=== PATIENT | male | born 1975 | race Caucasian/White ===

== ENCOUNTER 2023-07-25 18:04 | Inpatient (IN) ==
[2023-07-25 18:41] LABS: Basophils # (auto) 0.09 K/uL (0.00-0.20); Basophils % (auto) 0.7 %; Eosinophils # (auto) 0.36 K/uL (0.00-0.50); Hematocrit (blood only) 49.8 % (42.0-52.0); Hemoglobin 16.4 g/dl (14.0-18.0); Immature Granulocytes # (auto) 0.08 K/uL (0.01-0.20); Immature Granulocytes % (auto) 0.7 %; Lymphocytes # (auto) 3.05 K/uL (1.20-3.40); Lymphocytes % (auto) 25.4 %; Mean Corpuscular Hemoglobin 28.5 pg (25.0-34.0); Mean Corpuscular Hgb Conc 32.9 g/dL (32.0-36.0); Mean Corpuscular Volume 86.6 fL (80.0-100.0); Mean Platelet Volume 9.7 fL (9.4-12.4); Monocytes # (auto) 0.58 K/uL (0.11-0.59); Monocytes % (auto) 4.8 %; Neutrophils # (auto) 7.87 K/uL (1.40-6.50); Neutrophils % (auto) 65.4 %; Platelet Count 290 K/uL (130-400); RDW Coefficient of Variation 14.7 % (11.5-14.5); RDW Standard Deviation 46.2 fL (36.4-46.3); Red Blood Count 5.75 M/uL (4.70-6.10); White Blood Count 12.03 K/ul (4.8-10.8)
[2023-07-25 18:54] LABS: Albumin Globulin Ratio 1.2 (0.9-2); Albumin Level 4.4 gm/dl (3.4-5.0); BUN Creatinine Ratio 11.4 (10-20); Bilirubin,Total 0.8 mg/dl (0.2-1.0); Calcium 9.1 mg/dl (8.6-10.3); Creatinine Clr Calc Pharmacy 184.4 ml/min; Est GFR (African American) 131.2 ml/min; Est GFR (Non-African American) 113.2 ml/min; Globulin 3.7 gm/dl (2.5-4.0); Potassium 3.8 mmol/L (3.5-5.1); Total Protein 8.1 gm/dl (6.0-8.3)
[2023-07-25 18:58] LABS: Appearance Urine Cloudy (Clear); Bacteria Urine Automated None Seen (None Seen); Bilirubin Urine Negative (Negative); Blood Urine 1+ (Negative); Cast Urine Automated 0-2 /lpf (0-2); Color Urine Yellow; Epithelial Cell Urine Auto 0-2 /hpf (0-2); Glucose Urine UA Negative (Negative); Ketones Urine Negative (Negative); Leukocyte Esterase Urine 1+ (Negative); Nitrite Urine Positive (Negative); Protein Urine 3+ (Negative); Specific Gravity Urine 1.016 (1.000-1.030); Urobilinogen Urine Positive (Negative); WBC Urine Automated >50 /hpf (0-5)
[2023-07-25 18:59] LABS: Acetaminophen < 3 ug/ml (10-30); Salicylate < 3.0 mg/dl (3.0-30)
[2023-07-25 19:00] LABS: Amphetamines+Metham, Urine Neg (Neg); Barbiturates, Urine Neg (Neg); Benzodiazepine, Urine Neg (Neg); Cocaine, Urine Neg (Neg); MDMA (Ecstacy), Urine Neg (Neg); Marijuana, Urine Neg (Neg); Methadone, Urine Neg (Neg); Opiate, Urine Neg (Neg); Phencyclidine, Urine Neg (Neg)
[2023-07-25 19:10] LABS: Thyroid Stimulating Hormone 2.31 uIu/ml (0.300-4.500)
--- NOTE | 2023-07-25 19:11 | Emergency Department Note ---
Impression & Plan Suicide ideation, UTI (urinary tract infection) ED Provider Note NAME: HARIKA FARRIS AGE: 47 SEX: M : 1975 ARRIVES VIA: Ambulance INFORMANT: Patient, ED PROVIDER(S): Rubén Beltran MD CHIEF COMPLAINT: Anxiety, SI, chest pain HPI: This is a 47-year-old male with history of depression, anxiety, diabetes presenting for anxiety and SI. Patient states that he got home from work today and had 15+ panic attacks [id number] today. He notes that his heart was racing and he is having some mild chest pain which is typical for him when he has panic attacks. He notes that this is now resolved. He notes that this was so extreme that he was having SI. He had thoughts about shooting himself with a handgun which she did have abscess but was on the table. He has tells to take the gun away due to these thoughts. ROS: See above HPI for pertinent positives & negatives. A total of 10 systems reviewed and were otherwise negative. PHYSICAL EXAMINATION: General: resting comfortably in no acute distress Head: Normocephalic and atraumatic Eyes: Normal inspection, extraocular muscles intact Ear, nose, throat: Normal external exam Neck: Normal range of motion Respiratory: lungs clear to auscultation bilaterally Cardiovascular: Regular rate/rhythm, no murmur GI: soft, nontender, no guarding or rebound Extremities: nontender, moves all extremities Neuro: The patient awake and alert, appropriately conversive, no focal deficits, symmetric faces Skin: Warm, dry, and intact MEDICAL DECISION MAKING: This is a 47-year-old male history of depression, anxiety and diabetes presenting for anxiety/SI. Patient has resolved chest pain at this time this is very typical for his anxiety attack. Low concern for acute ACS but will rule out with EKG, troponin and cardiac workup. Otherwise will do medical screening workup for psychiatric clearance. -ECG independently interpreted by me with sinus, rate of 107, normal axis, normal [place], normal QRS, normal QTc, no ST segment elevations consistent with STEMI criteria -Lab work is reviewed at this time showed no significant abnormalities aside from a leukocytosis of 12 -Patient urinalysis does reveal signs of UTI -Patient troponin is negative x 2 -At this time patient is medically clear will require Keflex for UTI. Will need Keflex 500 mg 4 times daily for 7 days Differential diagnosis: SI, ACS, CHF, UTI ER treatment provided: See below Diagnostics interpreted by me: ECG: See above Cardiac Monitoring: An order was placed for continuous cardiac monitoring. The monitor shows a rate of 90 with sinus As stated above and show below. Imaging studies: See below. Past Med/Surg History Medical History (Updated 07/26/23 @ 00:26 by Rubén Beltran MD) Urinary retention UTI (urinary tract infection), bacterial Kidney stones Degenerative disc disease Attention deficit disorder (ADD) Post traumatic stress disorder Cardiac murmur "Mild" per pt No murmur noted per recent 04/23/22 anesthesia preop evaluation Surgical History History of cystoscopy Family history of reaction to anesthesia MOTHER > NAUSEA [place] teeth removed History of tonsillectomy and adenoidectomy Hx of cholecystectomy History of bilateral carpal tunnel release Family History Grandfather (Paternal) Diabetes Mother Kidney stone Social History Smoking Status: Never smoker Cigarettes Per Day: 1-2 X PER YEAR; Second Hand Exposure: No; Do You Dip or Chew Tobacco: No; Hx Alcohol Use: No Hx Substance Use: No Preferred Language: Sierra Leonean Communication Ability: Effective Visual Impairment: Limited Web Search Evaluator Required: No Beliefs That Will Affect Care: None Current Living Situation: Spouse Feels Safe at Home: Yes Gender Identity: Male Assistive Devices: Glasses Allergies Allergies Allergy/AdvReac Type Severity Reaction Status Date / Time buspirone [From BuSpar] Allergy Intermediate AGGRESSIVE Verified 06/24/23 12:42 AFTER TAKING SEVERAL DAYS metformin Allergy Verified 06/24/23 12:42 Home Meds Home Medications Medication Instructions Recorded Confirmed lorazepam 1 mg tablet (Ativan) 1 mg PO DAILY PRN Anxiety 08/09/20 07/25/23 glipizide 2.5 mg tablet, extended 10 mg PO QAM 04/07/22 07/25/23 release 24 hr omeprazole 20 mg tablet,delayed 20 mg PO QAM 04/07/22 07/25/23 release duloxetine 60 mg capsule,delayed 60 mg PO DAILY 04/14/23 07/25/23 release escitalopram oxalate 10 mg tablet 10 mg PO DAILY 07/25/23 07/25/23 Previous Rx's Medication Instructions Recorded tamsulosin 0.4 mg capsule (Flomax) 0.4 mg PO DAILY #7 caps 06/03/22 semaglutide 0.25 mg or 0.5 mg (2 0.25 mg (0.368 mL) subcut .COMPLEX 06/10/23 mg/3 mL) subcutaneous pen injector #4.8 mL (Ozempic) testosterone (AndroGel) 3 pump topical DAILY #150 grams 07/15/23 Results & Data (ED) Vital Signs Vital Signs - 24 hr 07/25/23 17:53 07/25/23 18:28 07/25/23 21:27 Temperature 36.6 C Temperature Source Oral Pulse Rate 98 H 103 H Pulse Rate [Right Finger] 86 Pulse Rhythm Regular Pulse Strength Normal Respiratory Rate 20 22 Respiratory Effort / Characteristics Non-Labored Spontaneous Non-Labored Respiratory Depth Normal Normal Respiratory Pattern Regular Regular Blood Pressure 154/86 H Blood Pressure [Left Arm] 164/105 H Blood Pressure Mean 108 Blood Pressure Mean [Left Arm] 124 Blood Pressure Position Sitting Blood Pressure Position [Left Arm] Semi-fowlers Pulse Oximetry 98 95 Oxygen Delivery Method Room Air Room Air Sepsis Recent Fever Within 48 Hours No Sepsis New/Unexplained Change in Mental Status No Sepsis Action Taken by Nursing No Action Required Laboratory Data 07/25/23 18:24 07/25/23 18:24 Lab Results 07/25/23 07/25/23 07/25/23 Range/Units 18:10 18:24 18:34 WBC 12.03 H (4.8-10.8) K/ul RBC 5.75 (4.70-6.10) M/uL Hgb 16.4 (14.0-18.0) g/dl Hct 49.8 (42.0-52.0) % MCV 86.6 (80.0-100.0) fL MCH 28.5 (25.0-34.0) pg MCHC 32.9 (32.0-36.0) g/dL RDW Std Deviation 46.2 (36.4-46.3) fL RDW Coeff of Tien 14.7 H (11.5-14.5) % Plt Count 290 (130-400) K/uL MPV 9.7 (9.4-12.4) fL Immature Gran % (Auto) 0.7 % Neut % (Auto) 65.4 % Lymph % (Auto) 25.4 % [place] % (Auto) 4.8 % Eos % (Auto) 3.0 % Baso % (Auto) 0.7 % Neut # (Auto) 7.87 H (1.40-6.50) K/uL Lymph # (Auto) 3.05 (1.20-3.40) K/uL [place] # (Auto) 0.58 (0.11-0.59) K/uL Eos # (Auto) 0.36 (0.00-0.50) K/uL Baso # (Auto) 0.09 (0.00-0.20) K/uL Immature Gran # (Auto) 0.08 (0.01-0.20) K/uL Sodium 137 (136-145) mmol/L Potassium 3.8 (3.5-5.1) mmol/L Chloride 103 (98-107) mmol/L Carbon Dioxide 26 (21-32) mmol/L Anion Gap 8 (3-11) BUN 8 (6-23) mg/dl Creatinine 0.70 (0.6-1.4) mg/dl Est Cr Clr Drug Dosing 184.4 ml/min Est GFR ( Amer) 131.2 ml/min Est GFR (Non-Af Amer) 113.2 ml/min BUN/Creatinine Ratio 11.4 (10-20) Glucose 118 H (70-99(Fasting)) mg/dl Calcium 9.1 (8.6-10.3) mg/dl Total Bilirubin 0.8 (0.2-1.0) mg/dl AST 42 H (13-39) U/L ALT 41 (7-52) U/L Alkaline Phosphatase 90 (34-104) U/L Troponin I High Sens 5.8 (0-20) pg/ml Total Protein 8.1 (6.0-8.3) gm/dl Albumin 4.4 (3.4-5.0) gm/dl Globulin 3.7 (2.5-4.0) gm/dl Albumin/Globulin Ratio 1.2 (0.9-2) TSH 2.310 (0.300-4.500) uIu/ml Urine Color Yellow Urine Appearance Cloudy A (Clear) Urine pH 7.0 (4.5-7.5) Ur Specific [place] 1.016 (1.000-1.030) Urine Protein 3+ H (Negative) Urine Glucose (UA) Negative (Negative) Urine Ketones Negative (Negative) Urine Blood 1+ H (Negative) Urine Nitrite Positive A (Negative) Urine Bilirubin Negative (Negative) Urine Urobilinogen Positive H (Negative) Ur Leukocyte Esterase 1+ H (Negative) Urine WBC (Auto) >50 H (0-5) /hpf Urine RBC (Auto) 6-10 H (0-2) /hpf U Hyaline Cast (Auto) 0-2 (0-2) /lpf U Epithel Cells (Auto) 0-2 (0-2) /hpf Urine Bacteria (Auto) None Seen (None Seen) Salicylates < 3.0 L (3.0-30) mg/dl Urine Opiates Screen Neg (Neg) Ur Methadone, Qual Neg (Neg) Acetaminophen < 3 L (10-30) ug/ml Urine Barbiturates Neg (Neg) Ur Phencyclidine (PCP) Neg (Neg) U Amphetamin/Meth Scrn Neg (Neg) MDMA (Ecstasy) Screen Neg (Neg) U Benzodiazepines Scrn Neg (Neg) Ur Cocaine Metabolite Neg (Neg) U Marijuana (THC) Screen Neg (Neg) Ethyl Alcohol mg/dL < 10.0 (<10.0) mg/dl SARS-CoV-2, RNA, NAAT (NEGATIVE) 07/25/23 07/25/23 Range/Units 18:40 20:30 WBC (4.8-10.8) K/ul RBC (4.70-6.10) M/uL Hgb (14.0-18.0) g/dl Hct (42.0-52.0) % MCV (80.0-100.0) fL MCH (25.0-34.0) pg MCHC (32.0-36.0) g/dL RDW Std Deviation (36.4-46.3) fL RDW Coeff of Tien (11.5-14.5) % Plt Count (130-400) K/uL MPV (9.4-12.4) fL Immature Gran % (Auto) % Neut % (Auto) % Lymph % (Auto) % [place] % (Auto) % Eos % (Auto) % Baso % (Auto) % Neut # (Auto) (1.40-6.50) K/uL Lymph # (Auto) (1.20-3.40) K/uL [place] # (Auto) (0.11-0.59) K/uL Eos # (Auto) (0.00-0.50) K/uL Baso # (Auto) (0.00-0.20) K/uL Immature Gran # (Auto) (0.01-0.20) K/uL Sodium (136-145) mmol/L Potassium (3.5-5.1) mmol/L Chloride (98-107) mmol/L Carbon Dioxide (21-32) mmol/L Anion Gap (3-11) BUN (6-23) mg/dl Creatinine (0.6-1.4) mg/dl Est Cr Clr Drug Dosing ml/min Est GFR ( Amer) ml/min Est GFR (Non-Af Amer) ml/min BUN/Creatinine Ratio (10-20) Glucose (70-99(Fasting)) mg/dl Calcium (8.6-10.3) mg/dl Total Bilirubin (0.2-1.0) mg/dl AST (13-39) U/L ALT (7-52) U/L Alkaline Phosphatase (34-104) U/L Troponin I High Sens 6.1 (0-20) pg/ml Total Protein (6.0-8.3) gm/dl Albumin (3.4-5.0) gm/dl Globulin (2.5-4.0) gm/dl Albumin/Globulin Ratio (0.9-2) TSH (0.300-4.500) uIu/ml Urine Color Urine Appearance (Clear) Urine pH (4.5-7.5) Ur Specific [place] (1.000-1.030) Urine Protein (Negative) Urine Glucose (UA) (Negative) Urine Ketones (Negative) Urine Blood (Negative) Urine Nitrite (Negative) Urine Bilirubin (Negative) Urine Urobilinogen (Negative) Ur Leukocyte Esterase (Negative) Urine WBC (Auto) (0-5) /hpf Urine RBC (Auto) (0-2) /hpf U Hyaline Cast (Auto) (0-2) /lpf U Epithel Cells (Auto) (0-2) /hpf Urine Bacteria (Auto) (None Seen) Salicylates (3.0-30) mg/dl Urine Opiates Screen (Neg) Ur Methadone, Qual (Neg) Acetaminophen (10-30) ug/ml Urine Barbiturates (Neg) Ur Phencyclidine (PCP) (Neg) U Amphetamin/Meth Scrn (Neg) MDMA (Ecstasy) Screen (Neg) U Benzodiazepines Scrn (Neg) Ur Cocaine Metabolite (Neg) U Marijuana (THC) Screen (Neg) Ethyl Alcohol mg/dL (<10.0) mg/dl SARS-CoV-2, RNA, NAAT NEGATIVE (NEGATIVE) Administered Medications Discontinued Medications Cephalexin HCl (Cephalexin 500 Mg Cap) 500 mg PO NOW STA; Protocol Stop: 07/25/23 19:13 Last Admin: 07/25/23 19:28 Dose: 500 mg Documented By: Discharge Plan Visit Data Chief Complaint: Mental Health Evaluation ED Provider: Rubén Beltran Discharge Problem: Suicide ideation, UTI (urinary tract infection) Patient Disposition: Admitted As Inpatient Discharge Instructions Interventions: ED Discharge Assessment Last Done: 07/25/23 22:19
[2023-07-25] MEDS: cephALEXin 500 MG CAP PO STA (19:28)
[2023-07-25 19:29] LABS: Troponin I High Sensitivity 5.8 pg/ml (0-20)
[2023-07-25] MEDS ORDERED: SODIUM CHLORIDE 0.65% NA SOLN 45 ML (OCEAN) PRN (23:38)
[2023-07-25] MEDS ORDERED: BISMUTH SUBSALICYLATE LIQD 236 ML PO PRN (23:38)
[2023-07-25] MEDS ORDERED: MAGNESIUM HYDROXIDE SUSP 30 ML UDC PO PRN (23:38)
[2023-07-26] MEDS ORDERED: PHARMACY GLYCEMIC MGMT CONSULT PRN (01:07)
[2023-07-26] MEDS: ACETAMINOPHEN 325 MG TAB PO PRN (04:02)
[2023-07-26] MEDS: glipiZIDE 5 MG TAB PO SCH (08:00)
[2023-07-26] MEDS ORDERED: cephALEXin 500 MG CAP PO SCH (09:00)
[2023-07-26] MEDS: OMEPRAZOLE 20 MG PO SCH (09:18)
[2023-07-26] MEDS: cephALEXin 500 MG CAP PO SCH (09:18)
[2023-07-26] MEDS: hydrOXYzine HCl 25 MG TAB PO PRN ×2 (13:01→20:25)
[2023-07-26] MEDS: DULoxetine HCL 30 MG CAP PO SCH (14:15)
--- NOTE | 2023-07-26 15:04 | History & Physical ---
Date of Service July 26, 2023 Impression / Recommendations Impression 47 y/o white male h/o MDD, MIRNA who presents with suicidal ideation and gesture (pulled gun next to him) in the context of relationship stressors and depressive episode. Medical problems include HTN, T2DM, recurrent UTI, renal stones, DJD, GERD. 07/26/23: Presents a h/o significant for multiple major depressive episodes with anxious distress. Currently condition managed by PCP. Did not restart home Lexapro and will increase Cymbalta to optimize dosing. Pt would benefit from safety planning. Recommended outpatient martial counseling to resolve martial conflicts. Does not meet criteria for PTSD or OCD at this time. (1) Major depressive disorder, recurrent episode with anxious distress: (2) Suicide ideation: (3) UTI (urinary tract infection): (4) Poorly controlled type 2 diabetes mellitus: (5) Class 3 obesity: (6) GERD (gastroesophageal reflux disease): (7) Hypertension: Plan 07/26/23: Increase Cymbalta to 30mg QAM, 60mg HS. 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 Chief Complaint "felt overwhelmed and thought about ending it". History of Present Illness 47 y/o white male h/o MDD, MIRNA who presents with suicidal ideation and gesture (pulled gun next to him) in the context of relationship stressors and depressive episode. Medical problems include HTN, T2DM, recurrent UTI, renal stones, DJD, GERD. Reports struggling with depression lately. He reports has been spending time with a new male friend and he was home alone. Ruminated and felt overwhelmed. He pulled the gun close to him from his nightstand and contemplated using it. He then called his mother who informed his and called EMS for assistance. Family has secured guns at this time. Reports recent depression and anxiety. C/o poor sleep, lower appetite, low energy, inc SI, and feelings of worthlessness. Reports inc in panic symptoms over last 2 weeks with episodes of chest pain, inc HR, loss of control. Reports h/o renal stones and UTI; denies current dysuria. Wants to communicate better with spouse and resolve current issues. Feels there is hope for the future. Denies current SI, HI, AVH. Past Psychiatric History Previous Psych History: Past psychiatrist, now mental health managed by PCP. Treated for depression and anxiety since 1995. Initially on Paxil and effective but d/c due to feeling like a "Zombie". He switched to Celexa and was effective for years. Was started on Cymbalta 60mg for back and nerve pain 1 year ago and rates as effective. PCP recently changed antidepressant to Lexapro 10mg given on-going depresion. Reports multiple depressive episodes from 1994 with symptoms of poor sleep, poor appetite, low energy, SI, feeling of worthlessness, loss of interest. Denies h/o hypomania. Denies hypervigilance symptoms, avoidance or nightmares. Current Psychiatric Diagnosis: PTSD, OCD, MIRNA, MDD Outpatient Services: PCP managing mental health care. Previous Psych Admissions: 5 past psychiatric hospitalizations, 2 in [facility] and 3 in [place], last 2018. Do You Have Access To A Gun?: Yes (family is removing firearms from home) History of Previous Suicide Attempt: Yes (multiple attempts in the past around 2018) Allergies Allergy/AdvReac Type Severity Reaction Status Date / Time buspirone [From BuSpar] Allergy Intermediate AGGRESSIVE Verified 06/24/23 12:42 AFTER TAKING SEVERAL DAYS metformin Allergy Verified 06/24/23 12:42 Home Medications Medication Instructions Recorded Confirmed Type lorazepam 1 mg tablet (Ativan) 1 mg PO DAILY PRN Anxiety 08/09/20 07/25/23 History glipizide 2.5 mg tablet, extended 10 mg PO QAM 04/07/22 07/25/23 History release 24 hr omeprazole 20 mg tablet,delayed 20 mg PO QAM 04/07/22 07/25/23 History release tamsulosin 0.4 mg capsule (Flomax) 0.4 mg PO DAILY #7 caps 06/03/22 07/25/23 Rx duloxetine 60 mg capsule,delayed 60 mg PO DAILY 04/14/23 07/25/23 History release semaglutide 0.25 mg or 0.5 mg (2 0.25 mg (0.368 mL) subcut .COMPLEX 06/10/23 07/25/23 Rx mg/3 mL) subcutaneous pen injector #4.8 mL (Ozempic) testosterone (AndroGel) 3 pump topical DAILY #150 grams 07/15/23 07/25/23 Rx escitalopram oxalate 10 mg tablet 10 mg PO DAILY 07/25/23 07/25/23 History Family History Family History of: Depression and Anxiety Family Mental Health History Comment: maternal side - depression, anxiety. Mother dx with depression on Celexa. paternal uncle - by suicide. Alcohol History Hx of Alcohol Use Over the Past 12 Months: No AUDIT Total Score: 0 Smoking Use Have You Smoked or Used Tobacco Products in the Last 30 Days: No tobacco type: cigars Smoking Status: Never smoker Substance History Hx of Prescription Med Misuse Over the Past 12 Months: No Hx of Over the Counter Med Misuse Over the Past 12 Months: No Hx of Inhalent Misuse Over the Past 12 Months: No Hx of Organic Substance Use Over the Past 12 Months: No Hx of Illegal Substances/Street Drug Use Over Past 12 Months: No Problems as a Result of Past Substance Use: None Identified Personal History Living Arrangements: Home Living Arrangements Comments: mobile home Highest Grade Completed: Some College Marital Status: Number Of Children: 0 Beliefs That Will Affect Care: None Current Legal Problems: No Hx Legal Problems: No Hx Traumatic Life Events: Yes Patient History Medical History Urinary retention UTI (urinary tract infection), bacterial Kidney stones Degenerative disc disease Attention deficit disorder (ADD) Post traumatic stress disorder Cardiac murmur "Mild" per pt No murmur noted per recent 04/23/22 anesthesia preop evaluation Surgical History History of cystoscopy Family history of reaction to anesthesia MOTHER > NAUSEA [place] teeth removed History of tonsillectomy and adenoidectomy Hx of cholecystectomy History of bilateral carpal tunnel release Family History Grandfather (Paternal) Diabetes Mother Kidney stone Social History Smoking Status: Never smoker Cigarettes Per Day: 1-2 X PER YEAR; Second Hand Exposure: No; Do You Dip or Chew Tobacco: No; Hx Alcohol Use: No Hx Substance Use: No Preferred Language: Wolof Communication Ability: Effective Visual Impairment: Limited Director Child Required: No Beliefs That Will Affect Care: None Current Living Situation: Spouse Feels Safe at Home: Yes Gender Identity: Male Assistive Devices: Glasses Physical Exam Mental Examination: Appearance: Disheveled Eye Contact: Maintains Eye Contact Motor Behavior: Unremarkable Speech: Normal Mood: Depressed and Anxious Affect: Appropriate and Constricted Thought Process: Intact, Linear and Logical Thought Content: Intact Hallucinations: None Insight: Fair Judgement: Poor Vital Signs (Past 24 Hours): Last Vital Signs Temp 36.7 C 07/26/23 06:37 Pulse 105 H 07/26/23 06:38 Resp 16 07/26/23 06:37 BP 154/94 H 07/26/23 06:38 Pulse Ox 97 07/25/23 23:07 O2 Del Method Room Air 07/25/23 23:07 Exam Statement: A physical exam was performed in the ER prior to admission to the unit. I accept that physical as correct/medical clearance for the inpatient physical exam. Results & Data (U) Laboratory Results Laboratory Results - last 24 hr 07/25/23 07/25/23 07/25/23 18:10 18:24 18:34 WBC 12.03 H RBC 5.75 Hgb 16.4 Hct 49.8 MCV 86.6 MCH 28.5 MCHC 32.9 RDW Std Deviation 46.2 RDW Coeff of Tien 14.7 H Plt Count 290 MPV 9.7 Immature Gran % (Auto) 0.7 Neut % (Auto) 65.4 Lymph % (Auto) 25.4 [place] % (Auto) 4.8 Eos % (Auto) 3.0 Baso % (Auto) 0.7 Neut # (Auto) 7.87 H Lymph # (Auto) 3.05 [place] # (Auto) 0.58 Eos # (Auto) 0.36 Baso # (Auto) 0.09 Immature Gran # (Auto) 0.08 Sodium 137 Potassium 3.8 Chloride 103 Carbon Dioxide 26 Anion Gap 8 BUN 8 Creatinine 0.70 Est Cr Clr Drug Dosing 184.4 Est GFR ( Amer) 131.2 Est GFR (Non-Af Amer) 113.2 BUN/Creatinine Ratio 11.4 Glucose 118 H POC Glucose Calcium 9.1 Total Bilirubin 0.8 AST 42 H ALT 41 Alkaline Phosphatase 90 Troponin I High Sens 5.8 Total Protein 8.1 Albumin 4.4 Globulin 3.7 Albumin/Globulin Ratio 1.2 TSH 2.310 Urine Color Yellow Urine Appearance Cloudy A Urine pH 7.0 Ur Specific [place] 1.016 Urine Protein 3+ H Urine Glucose (UA) Negative Urine Ketones Negative Urine Blood 1+ H Urine Nitrite Positive A Urine Bilirubin Negative Urine Urobilinogen Positive H Ur Leukocyte Esterase 1+ H Urine WBC (Auto) >50 H Urine RBC (Auto) 6-10 H U Hyaline Cast (Auto) 0-2 U Epithel Cells (Auto) 0-2 Urine Bacteria (Auto) None Seen Salicylates < 3.0 L Urine Opiates Screen Neg Ur Methadone, Qual Neg Acetaminophen < 3 L Urine Barbiturates Neg Ur Phencyclidine (PCP) Neg U Amphetamin/Meth Scrn Neg MDMA (Ecstasy) Screen Neg U Benzodiazepines Scrn Neg Ur Cocaine Metabolite Neg U Marijuana (THC) Screen Neg Ethyl Alcohol mg/dL < 10.0 SARS-CoV-2, RNA, NAAT 07/25/23 07/25/23 07/26/23 18:40 20:30 08:00 WBC RBC Hgb Hct MCV MCH MCHC RDW Std Deviation RDW Coeff of Tien Plt Count MPV Immature Gran % (Auto) Neut % (Auto) Lymph % (Auto) [place] % (Auto) Eos % (Auto) Baso % (Auto) Neut # (Auto) Lymph # (Auto) [place] # (Auto) Eos # (Auto) Baso # (Auto) Immature Gran # (Auto) Sodium Potassium Chloride Carbon Dioxide Anion Gap BUN Creatinine Est Cr Clr Drug Dosing Est GFR ( Amer) Est GFR (Non-Af Amer) BUN/Creatinine Ratio Glucose POC Glucose 127 H Calcium Total Bilirubin AST ALT Alkaline Phosphatase Troponin I High Sens 6.1 Total Protein Albumin Globulin Albumin/Globulin Ratio TSH Urine Color Urine Appearance Urine pH Ur Specific [place] Urine Protein Urine Glucose (UA) Urine Ketones Urine Blood Urine Nitrite Urine Bilirubin Urine Urobilinogen Ur Leukocyte Esterase Urine WBC (Auto) Urine RBC (Auto) U Hyaline Cast (Auto) U Epithel Cells (Auto) Urine Bacteria (Auto) Salicylates Urine Opiates Screen Ur Methadone, Qual Acetaminophen Urine Barbiturates Ur Phencyclidine (PCP) U Amphetamin/Meth Scrn MDMA (Ecstasy) Screen U Benzodiazepines Scrn Ur Cocaine Metabolite U Marijuana (THC) Screen Ethyl Alcohol mg/dL SARS-CoV-2, RNA, NAAT NEGATIVE Current Inpatient Medications Current Inpatient Medications: Current Inpatient Medications Acetaminophen (Acetaminophen 325 Mg Tab) 650 mg PO Q4H PRN PRN Reason: Headache or Minor Fever Stop: 08/24/23 23:37 Last Admin: 07/26/23 04:02 Dose: 650 mg Al Hydrox/Mg Hydrox/Simethicone (Aluminum/Magnesium Susp 30 Ml Udc) 30 ml PO Q4H PRN PRN Reason: GI Upset Stop: 08/24/23 23:37 Bismuth Subsalicylate (Bismuth Subsalicylate Liqd 236 Ml) 15 ml PO PRN PRN PRN Reason: Loose Stool Stop: 08/24/23 23:37 Cephalexin HCl (Cephalexin 500 Mg Cap) 500 mg PO QID HERACLIO; Protocol Stop: 08/01/23 21:01 Last Admin: 07/26/23 12:58 Dose: 500 mg Duloxetine HCl (Duloxetine Hcl 30 Mg Cap) 30 mg PO QAM HERACLIO Stop: 08/25/23 13:44 Last Admin: 07/26/23 14:15 Dose: 30 mg Duloxetine HCl (Duloxetine Hcl 60 Mg Cap) 60 mg PO HS HERACLIO Stop: 08/25/23 21:59 Glipizide (Glipizide 5 Mg Tab) 10 mg PO DAILY@0800 HERACLIO Stop: 08/25/23 07:59 Last Admin: 07/26/23 08:00 Dose: 10 mg Hydroxyzine HCl (Hydroxyzine Hcl 25 Mg Tab) 50 mg PO HSZ PRN PRN Reason: Insomnia Stop: 08/24/23 23:37 Hydroxyzine HCl (Hydroxyzine Hcl 25 Mg Tab) 25 mg PO Q4H PRN PRN Reason: Anxiety Stop: 08/24/23 23:37 Last Admin: 07/26/23 13:01 Dose: 25 mg Lorazepam (Lorazepam 0.5 Mg Tab) 0.5 mg PO BID PRN PRN Reason: Anxiety Stop: 08/25/23 13:41 Magnesium Hydroxide (Magnesium Hydroxide Susp 30 Ml Udc) 30 ml PO DAILY PRN PRN Reason: Constipation Stop: 08/24/23 23:37 Omeprazole (Pom - Omeprazole 20 Mg Capcr) [facility] Stop: 08/25/23 08:59 Last Admin: 07/26/23 09:18 Dose: 20 mg Sodium Chloride (Sodium Chloride 0.65% Na Soln 45 Ml ([place])) 1 - 2 sprays NA PRN PRN PRN Reason: Nasal Dryness/Congestion Stop: 08/24/23 23:37
[2023-07-26] MEDS: DULoxetine HCL 60 MG CAP PO SCH (20:25)
[2023-07-26] MEDS: LORazepam 0.5 MG TAB PO PRN (21:52)
[2023-07-27] MEDS: TAMSULOSIN HCL 0.4 MG CAP PO SCH (10:52)
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
[2023-07-27] MEDS: ARIPiprazole 5 MG TAB PO SCH (12:08)
--- NOTE | 2023-07-27 12:33 | Hospitalist Consultation ---
Date of Consultation July 27, 2023 Assessment & Plan (1) Tachycardia: Repeat EKG on 07/26 revealed sinus tachycardia at 104 bpm; QTc 405 Without significant changes from EKG on 07/24 It is possible tachycardia may be secondary to anxiety/panic attacks in the setting of beta-chapito withdrawal Clinically, patient endorses episodes of diaphoresis, lightheadedness, and chest palpitations, but denies chest pain or pressure in the shoulders or jaw Note: These episodes of diaphoresis have been ongoing for several years TSH on arrival was WNL Troponin on arrival was WNL Repeat CBC, BMP, magnesium, and troponin ordered, pending Spoke to [facility]; continues telemetry is unfortunately not an option at this time Will put in an order for "EKG as needed for chest pain" with goal to capture EKG if sweating/chest palpitations return (2) UTI (urinary tract infection): Continue Keflex Hx of kidney stones While in ascending infection is still in the differential as a cause for new onset tachycardia Urine culture on 07/24 grew pansensitive Klebsiella pneumoniae Follow repeat CBC (3) Hypertension: Patient was previously on metoprolol 50 mg daily, but this was discontinued 2 weeks ago due to increased lethargy Will defer starting beta-chapito/CCB until EKG is captured during episodes of chest palpitations/diaphoresis (4) Suicide ideation: Patient originally presented due to suicidal ideations; he reports he has been having trouble with his Management per primary team Plan Agree with current medical decision making. Patient is amenable to holding off on addition of beta-chapito or CCB, as he is largely asymptomatic from his tachycardia at this time and he does not want it to affect his current psych medications. Will consider adding if patient becomes symptomatic. Thank you for allowing us to participate in the care of this patient, please reach out with any questions or concerns. We will continue to follow. Supervising Physician Co-Signing Physician Notes I personally saw and examined the patient. I independently reviewed the labs, EKG, imaging, problem list, medication list, past medical history and family history. I verified all brantley points and agree with Waldemar Putnam PA-C with the following exceptions and/or additions: See communication note from later in day for subjective, assessment and plan A&Ox3, HS increased rate, regular rhythm, no murmurs, Chest CTAB, Abdo SNT, no CVA tenderness History of Present Illness Reason for Consultation: Hypertension Requesting Physician: Braden Marin MD Attending Physician: Braden Marin MD History of Present Illness Yifan is a pleasant 47-year-old male with PMH of MDD, MIRNA, suicidal ideations, T2DM, GERD, and HTN. Patient was admitted for suicidal ideations on 07/24. Shortly into his hospital stay, he developed tachycardia and episodes of diaphoresis. Patient reports that he has been having "sweaty spells" that lasts around 30 to 45 minutes and usually occur after he gets out of the shower. He notes that he has had increased heat intolerance, as well as chest palpitations and lightheadedness that can occur both with exertion and at rest. These episodes of lightheadedness occur 2-3 times per day, and have been happening regularly over the past 2 months. Patient denies any changes in diet; he r eports that he eats healthy and avoids caffeine. He drinks plenty of water due to his extensive history of kidney stones. To his knowledge he has no history of thyroid issues. Patient had chest pain on arrival, but he attributes it to his anxiety and panic attack at that time. It should be noted that the patient was previously on metoprolol 50 mg daily for his hypertension, but this was discontinued around 2 weeks ago as it led to increased lethargy. Patient is tachycardic at 121 bpm at time of consult; vitals otherwise stable. ROS: Patient endorses diaphoretic episodes, heat intolerance, night sweats, body aches, dizziness/lightheadedness, cough (which patient attributes to allergies) and intermittent chest palpitations. Patient denies fever, chills, chest pain, left shoulder/jaw pain or pressure, pleuritic CP, SOB, abdominal pain, N/V/D, changes in urinary or bowel habits, burning with urination (although patient says he can ever feel when he is having a UTI), flank pain, back pain, or decreased urinary output. Allergies Allergy/AdvReac Type Severity Reaction Status Date / Time buspirone [From BuSpar] Allergy Intermediate AGGRESSIVE Verified 06/24/23 12:42 AFTER TAKING SEVERAL DAYS metformin Allergy Verified 06/24/23 12:42 Home Medications Medication Instructions Recorded Confirmed Type lorazepam 1 mg tablet (Ativan) 1 mg PO DAILY PRN Anxiety 08/09/20 07/25/23 History glipizide 2.5 mg tablet, extended 10 mg PO QAM 04/07/22 07/25/23 History release 24 hr omeprazole 20 mg tablet,delayed 20 mg PO QAM 04/07/22 07/25/23 History release tamsulosin 0.4 mg capsule (Flomax) 0.4 mg PO DAILY #7 caps 06/03/22 07/25/23 Rx duloxetine 60 mg capsule,delayed 60 mg PO DAILY 04/14/23 07/25/23 History release semaglutide 0.25 mg or 0.5 mg (2 0.25 mg (0.368 mL) subcut .COMPLEX 06/10/23 07/25/23 Rx mg/3 mL) subcutaneous pen injector #4.8 mL (Ozempic) testosterone (AndroGel) 3 pump topical DAILY #150 grams 07/15/23 07/25/23 Rx escitalopram oxalate 10 mg tablet 10 mg PO DAILY 07/25/23 07/25/23 History Patient History Medical History Urinary retention UTI (urinary tract infection), bacterial Kidney stones Degenerative disc disease Attention deficit disorder (ADD) Post traumatic stress disorder Cardiac murmur "Mild" per pt No murmur noted per recent 04/23/22 anesthesia preop evaluation Surgical History History of cystoscopy Family history of reaction to anesthesia MOTHER > NAUSEA [place] teeth removed History of tonsillectomy and adenoidectomy Hx of cholecystectomy History of bilateral carpal tunnel release Family History Grandfather (Paternal) Diabetes Mother Kidney stone Social History Smoking Status: Never smoker Cigarettes Per Day: 1-2 X PER YEAR; Second Hand Exposure: No; Do You Dip or Chew Tobacco: No; Hx Alcohol Use: No Hx Substance Use: No Preferred Language: German Communication Ability: Effective Visual Impairment: Limited Tumbling And Rolling Supervisor Required: No Beliefs That Will Affect Care: None Current Living Situation: Spouse Feels Safe at Home: Yes Gender Identity: Male Assistive Devices: Glasses Review of Systems Review of Systems: See HPI above Physical Exam Physical Exam: General: no acute distress; pleasant affect; non-toxic appearing; well- nourished; cooperative; SpO2 98% on RA HEENT: normocephalic, atraumatic; no scleral icterus; PERRLA; vision and hearing grossly intact Neck: supple; no lymphadenopathy; trachea midline Skin: warm, dry without signs of tenting; no cyanosis; no rashes, bruising, lesions, or erythema noted CV: chest wall NTP; RR, tachycardic around 120 bpm; S1/S2 normal; no murmurs/rubs/gallops; pulses intact and symmetric at radial, DP, and PT Lungs: no acute respiratory distress; symmetrical chest wall expansion; clear breath sounds across all lung [place] w/o adventitious sounds; no wheezing ABD: Soft, NTP; BS present; no rebound/guarding; moderate distention secondary t o body habitus; negative CVA tenderness; no signs of rashes, erythema, or bruising on the back abdomen or flanks MSK: no tics or fasciculations; no edema noted in the LEs b/l, nonerythematous Neuro: A&Ox3; normal mood and affect; fluent speech; no focal deficits; sensation intact in the LEs b/l Results & Data Results & Data Vital Signs (Past 12 Hours) Vital Signs Temp Pulse Pulse Resp BP BP Pulse Ox 07/27/23 11:10 121 H 18 137/98 98 07/27/23 06:35 118 H 157/103 H 07/27/23 06:34 36.9 C 114 H 18 155/95 H O2 Del Method 07/27/23 11:10 Room Air 07/27/23 06:35 07/27/23 06:34 Laboratory Results Abnormal lab results 07/27/23 Range/Units 07:24 POC Glucose 133 H (70-99) mg/dl PG Care Time/CCT Total # of Minutes Spent Total Time Spent with Patient: Total time spent is greater than 50% in coordination of care (as documented) at patient's floor/unit and/or counseling patient: [place] [address] IN/OBS CONSULT LVL 4,60M Patient Type New Medical Decision Making Moderate Complexity Diagnoses Tachycardia R00.0 UTI (urinary tract infection) N39.0 Hypertension I10 Suicide ideation R45.851
[2023-07-27 14:43] LABS: Basophils % (auto) 0.8 %; Eosinophils # (auto) 0.41 K/uL (0.00-0.50); Eosinophils % (auto) 3.4 %; Hematocrit (blood only) 50.2 % (42.0-52.0); Hemoglobin 17.1 g/dl (14.0-18.0); Immature Granulocytes # (auto) 0.08 K/uL (0.01-0.20); Immature Granulocytes % (auto) 0.7 %; Lymphocytes # (auto) 3.17 K/uL (1.20-3.40); Lymphocytes % (auto) 26.4 %; Mean Corpuscular Hemoglobin 29.1 pg (25.0-34.0); Mean Corpuscular Hgb Conc 34.1 g/dL (32.0-36.0); Mean Corpuscular Volume 85.4 fL (80.0-100.0); Mean Platelet Volume 9.5 fL (9.4-12.4); Monocytes # (auto) 0.65 K/uL (0.11-0.59); Monocytes % (auto) 5.4 %; Neutrophils % (auto) 63.3 %; Platelet Count 296 K/uL (130-400); RDW Coefficient of Variation 14.6 % (11.5-14.5); RDW Standard Deviation 45.2 fL (36.4-46.3); Red Blood Count 5.88 M/uL (4.70-6.10); White Blood Count 12.01 K/ul (4.8-10.8)
[2023-07-27 15:00] LABS: BUN Creatinine Ratio 10.4 (10-20); Calcium 9.5 mg/dl (8.6-10.3); Creatinine Clr Calc Pharmacy 134.4 ml/min; Est GFR (African American) 109.4 ml/min; Est GFR (Non-African American) 94.4 ml/min; Magnesium 1.9 mg/dl (1.7-2.4); Potassium 3.8 mmol/L (3.5-5.1)
[2023-07-27 15:07] LABS: Troponin I High Sensitivity 5.7 pg/ml (0-20)
[2023-07-27] MEDS: [UNRECOGNIZED DRUG - REMARK] SQ SCH (19:45)
--- NOTE | 2023-07-27 23:58 | Communication Note ---
Date of Service: July 27, 2023 Diaphoretic intermittent episodes, stable for many years this does not appear related to his current tachycardia. security monitor could be considered on an ou tpatient basis but given stability for years and EKG taken during an episode showing sinus tachycardia alone I do not feels this needs further inpatient workup. Consider POC glucose during the episode since he is on glipizide. Doubtful he is hypoglycemic but would be useful to objectively rule this out. Pheochromocytoma workup is a low likelihood given stability but could be considered as an outpatient. He does not appear to have a secondary cause of tachycardia: UTI - infection is appropriately being treated with Keflex and he has no worsening symptoms or fever to suggest it is not being adequately treated. WBC minimally elevated, will add procalcitonin for complete workup No hypoxia/anemia/hypovolemia/CHF/ACS, from history/exam no concern of pulmonary embolism Most likely he has baseline tachycardia even while on metoprolol as can be seen from historic trends. Once the metoprolol was stopped he has had this get worse with ongoing inappropriate sinus tachycardia. We discussed treatment for this: 1) Restart metoprolol - he reports the side effects were too much to go back on this 2) Alternative AV rashard chapito - eg. diltiazem 3) Ivabradine 4) Nothing Given his psychiatric medications are being changed it would be difficult to know which drug to blame if he started having side effects therefore he wishes to hold off treatment for now. Thank you for the consult. We will review the patient tomorrow to follow up on procalcitonin, POC glucose and vital signs.
--- NOTE | 2023-07-28 03:43 | Electrocardiogram Report ---
Test Reason : Blood Pressure : / mmHG Vent. Rate : 107 BPM Atrial Rate : 107 BPM P-R Int : 182 ms QRS Dur : 078 ms QT Int : 300 ms P-R-T Axes : 054 030 103 degrees QTc Int : 400 ms Sinus tachycardia Possible Left atrial enlargement Cannot rule out Anterior infarct , age undetermined T wave abnormality, consider lateral ischemia Abnormal ECG When compared with ECG of 08-APR-2022 10:25, Inverted T waves have replaced nonspecific T wave abnormality in Lateral leads Confirmed by Luis Felipe Fairbanks ([id number]) on 07/28/2023 3:43:23 AM Referred By: REFERRED SELF Confirmed By:Luis Felipe Fairbanks
--- NOTE | 2023-07-28 04:20 | Electrocardiogram Report ---
Test Reason : Blood Pressure : / mmHG Vent. Rate : 104 BPM Atrial Rate : 104 BPM P-R Int : 184 ms QRS Dur : 078 ms QT Int : 308 ms P-R-T Axes : 059 051 081 degrees QTc Int : 405 ms Sinus tachycardia Possible Left atrial enlargement T wave abnormality, consider lateral ischemia Abnormal ECG When compared with ECG of 25-JUL-2023 18:15, No significant change Confirmed by Luis Felipe Fairbanks ([id number]) on 07/28/2023 4:20:32 AM Referred By: REFERRED SELF Confirmed By:Luis Felipe Fairbanks
[2023-07-28 09:30] LABS: Chol HDL Ratio 4.5 (0-5)
[2023-07-28 09:34] LABS: Estimated Average Glucose 163 mg/dl; Hemoglobin A1C 7.3 % (4.5-5.6)
[2023-07-28] MEDS: METOPROLOL SUCC 50MG EXT REL TAB PO STA (09:50)
[2023-07-28] MEDS: cloNIDine HCL 0.1 MG TAB PO ONE (10:00)
--- NOTE | 2023-07-28 10:37 | Psychiatric Progress Note ---
Date of Service July 28, 2023 Impression / Recommendations Impression 47 y/o white male h/o MDD, MIRNA who presents with suicidal ideation and gesture (pulled gun next to him) in the context of relationship stressors and depressive episode. Medical problems include HTN, T2DM, recurrent UTI, renal stones, DJD, GERD. Presents a h/o significant for multiple major depressive episodes with anxious distress. 07/27/23: Patient is tolerating the increased dose of Cymbalta and initiation of Abilify. Has reconciled with his and presents a more positive outlook. (1) Major depressive disorder, recurrent episode with anxious distress: (2) Suicide ideation: (3) UTI (urinary tract infection): (4) Poorly controlled type 2 diabetes mellitus: (5) Class 3 obesity: (6) GERD (gastroesophageal reflux disease): (7) Hypertension: Plan 07/28/23: Continue Cymbalta 30mg QAM, 60mg HS; Abilify 5mg QD. 07/27/23: Continue Cymbalta 30mg QAM, 60mg HS. Restart home Tamsulosin 0.4mg QAM. Start Aripiprazole 5mg daily for SNRI augmentation. Consult hospitalist for BP and UTI recs. 07/26/23: Increase Cymbalta to 30mg QAM, 60mg HS. 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 Medical problems include HTN, T2DM, recurrent UTI, renal stones, DJD, GERD. Chief Complaint "can't sleep on this bed". Review of Systems Sleep Information Total Hours of Sleep: 6 Sleep Comments: Requested PRN Vistaril and Ativan for sleep, was up at 0600 Meal Information Percent Meal Consumed - Breakfast: 100 Percent Meal Consumed - Lunch: 100 Percent Meal Consumed - Dinner: 100 Subjective Subjective Patient was seen & assessed and interval progress reviewed with treatment team nursing and social work Overnight no acute events. Patient reports that his the meeting with his yesterday went well. They were able to communicate their needs And he feels like she understood. Reports poor sleep overnight and complains about the bed; says his sleep is good at home. Has been tolerating the Abilify with no reported side effects. He denies SI or HI and AVH. Physical Exam Mental Examination Appearance: Well Groomed Eye Contact: Maintains Eye Contact Motor Behavior: Unremarkable Speech: Normal Mood: Depressed and Anxious Affect: Appropriate and Constricted Thought Process: Intact, Linear and Logical Thought Content: Intact Hallucinations: None Insight: Fair Judgement: Poor (recent suicidal gesture) Vital Signs (Past 24 Hours) Last Vital Signs Temp 36.7 C 07/28/23 06:45 Pulse 105 H 07/28/23 06:45 Resp 18 07/28/23 06:45 BP 158/105 H 07/28/23 06:45 Pulse Ox 98 07/27/23 11:10 O2 Del Method Room Air 07/27/23 11:10 Results & Data ([facility]) Laboratory Results Laboratory Results - last 24 hr 07/27/23 07/28/23 07/28/23 14:21 06:47 08:34 WBC 12.01 H RBC 5.88 Hgb 17.1 Hct 50.2 MCV 85.4 MCH 29.1 MCHC 34.1 RDW Std Deviation 45.2 RDW Coeff of Tien 14.6 H Plt Count 296 MPV 9.5 Immature Gran % (Auto) 0.7 Neut % (Auto) 63.3 Lymph % (Auto) 26.4 [place] % (Auto) 5.4 Eos % (Auto) 3.4 Baso % (Auto) 0.8 Neut # (Auto) 7.60 H Lymph # (Auto) 3.17 [place] # (Auto) 0.65 H Eos # (Auto) 0.41 Baso # (Auto) 0.10 Immature Gran # (Auto) 0.08 Sodium 137 Potassium 3.8 Chloride 105 Carbon Dioxide 24 Anion Gap 8 BUN 10 Creatinine 0.96 Est Cr Clr Drug Dosing 134.4 Est GFR ( Amer) 109.4 Est GFR (Non-Af Amer) 94.4 BUN/Creatinine Ratio 10.4 Glucose 132 H POC Glucose 140 H Estimat Average Glucose 163 Hemoglobin A1c 7.3 H Calcium 9.5 Magnesium 1.9 Troponin I High Sens 5.7 Triglycerides 165 H Cholesterol 147 LDL Cholesterol, Calc 81 VLDL Cholesterol, Calc 33 H HDL Cholesterol 33 Cholesterol/HDL Ratio 4.5 Procalcitonin 0.10 Current Inpatient Medications Current Inpatient Medications: Current Inpatient Medications Acetaminophen (Acetaminophen 325 Mg Tab) 650 mg PO Q4H PRN PRN Reason: Headache or Minor Fever Stop: 08/24/23 23:37 Last Admin: 07/27/23 14:14 Dose: 650 mg Al Hydrox/Mg Hydrox/Simethicone (Aluminum/Magnesium Susp 30 Ml Udc) 30 ml PO Q4H PRN PRN Reason: GI Upset Stop: 08/24/23 23:37 Aripiprazole (Aripiprazole 5 Mg Tab) 5 mg PO DAILY [facility] Stop: 08/26/23 10:59 Last Admin: 07/28/23 07:51 Dose: 5 mg Bismuth Subsalicylate (Bismuth Subsalicylate Liqd 236 Ml) 15 ml PO PRN PRN PRN Reason: Loose Stool Stop: 08/24/23 23:37 Cephalexin HCl (Cephalexin 500 Mg Cap) 500 mg PO QID [facility]; Protocol Stop: 08/01/23 21:01 Last Admin: 07/28/23 07:51 Dose: 500 mg Clonidine HCl (Clonidine Hcl 0.1 Mg Tab) 0.1 mg PO QAM [facility] Stop: 08/28/23 08:59 Duloxetine HCl (Duloxetine Hcl 30 Mg Cap) 30 mg PO QAM [facility] Stop: 08/25/23 13:44 Last Admin: 07/28/23 07:51 Dose: 30 mg Duloxetine HCl (Duloxetine Hcl 60 Mg Cap) 60 mg PO HS [facility] Stop: 08/25/23 21:59 Last Admin: 07/27/23 20:46 Dose: 60 mg Glipizide (Glipizide 5 Mg Tab) 10 mg PO DAILY@0800 [facility] Stop: 08/25/23 07:59 Last Admin: 07/28/23 07:50 Dose: 10 mg Hydroxyzine HCl (Hydroxyzine Hcl 25 Mg Tab) 50 mg PO HSZ PRN PRN Reason: Insomnia Stop: 08/24/23 23:37 Last Admin: 07/27/23 20:46 Dose: 50 mg Hydroxyzine HCl (Hydroxyzine Hcl 25 Mg Tab) 25 mg PO Q4H PRN PRN Reason: Anxiety Stop: 08/24/23 23:37 Last Admin: 07/26/23 13:01 Dose: 25 mg Lorazepam (Lorazepam 0.5 Mg Tab) 0.5 mg PO BID PRN PRN Reason: Anxiety Stop: 08/25/23 13:41 Last Admin: 07/27/23 21:38 Dose: 0.5 mg Magnesium Hydroxide (Magnesium Hydroxide Susp 30 Ml Udc) 30 ml PO DAILY PRN PRN Reason: Constipation Stop: 08/24/23 23:37 Semaglutide*Non-Form (Patient's Own Med) 1 each SQ Q7D@1999 [facility] Stop: 08/26/23 19:59 Last Admin: 07/27/23 19:45 Dose: 0.25 mg Omeprazole (Pom - Omeprazole 20 Mg Capcr) 20 mg PO QAM [facility] Stop: 08/25/23 08:59 Last Admin: 07/28/23 07:51 Dose: 20 mg Sodium Chloride (Sodium Chloride 0.65% Na Soln 45 Ml (Gays)) 1 - 2 sprays NA PRN PRN PRN Reason: Nasal Dryness/Congestion Stop: 08/24/23 23:37 Tamsulosin HCl (Tamsulosin Hcl 0.4 Mg Cap) 0.4 mg PO DAILY [facility] Stop: 08/26/23 10:14 Last Admin: 07/28/23 07:51 Dose: 0.4 mg Mental Health & Subst Abuse Tx Psychiatrist Name of Psychiatrist: Leoncio [facility] Psychiatrist's Psychiatric Appointment Comment: [address] [facility] [address] Therapist Name of Therapist: Ne Hurd Date of Therapist Appointment: 07/27/23 Time of Therapist Appointment: 1430 Therapy Appointment Comment: Virtual, every 2 weeks Therapist Release of Information: Obtained, Reviewed and Signed Post Discharge Appointments Primary Care Physician Name Of Family Doctor/PCP: Dr. العراقي Primary [facility] Date of Future Appointment with PCP: 08/02/22 Time of Appointment with PCP: 9:00 Provider Appointment Comment: [address] [place] [address] Primary Care Release of Information: Obtained, Reviewed and Signed
--- NOTE | 2023-07-28 16:31 | Hospitalist Progress Note ---
Date of Service July 28, 2023 Assessment & Plan (1) Tachycardia: Plan: Repeat EKG on 07/26 revealed sinus tachycardia at 104 bpm; QTc 405 tachycardia is now not in connection to hypertension, maybe related to anxiety Troponin on arrival was WNL TSH normal at this point yenifer control hypertension, did have good response to clonidine, will continue daiy as pt does not want to use Beta Blockers as previously has issues (2) UTI (urinary tract infection): Plan: Continue Keflex Hx of kidney stones Urine culture on 07/24 grew pansensitive Klebsiella pneumoniae (3) Suicide ideation: Plan: Patient originally presented due to suicidal ideations; he reports he has been having trouble with his Management per [facility] unit Admission and Anticipated Discharge Date Admission Date: July 25, 2023 Results & Data Results & Data Vital Signs (Past 12 Hours) Vital Signs Temp Pulse Resp BP 07/28/23 13:24 114 H 133/86 07/28/23 06:45 105 H 158/105 H 07/28/23 06:45 98.1 F 97 H 18 121/82 PG Care Time/CCT Total # of Minutes Spent Total Time Spent with Patient: Total time spent is greater than 50% in coordination of care (as documented) at patient's floor/unit and/or counseling patient: Coding Level of Care Code 67270 SUB INP/OBS CARE 1/25MIN Diagnoses Tachycardia R00.0 UTI (urinary tract infection) N39.0 Suicide ideation R45.851
--- NOTE | 2023-07-29 07:50 | Hospitalist Progress Note ---
Date of Service July 29, 2023 Assessment & Plan (1) Tachycardia: Plan: Repeat EKG on 07/26 revealed sinus tachycardia at 104 bpm; QTc 405 tachycardia is now not in connection to hypertension, maybe related to anxiety Troponin on arrival was WNL TSH normal clonidine with improvement of hypertension, will not try to have completely normotensive as it may take a few weeks to equilibrate, continue medication at dc if pt agreeable (2) UTI (urinary tract infection): Plan: Continue Keflex complete 7 days last dose in the pm of 07/31 Hx of kidney stones Urine culture on 07/24 grew pansensitive Klebsiella pneumoniae (3) Suicide ideation: Plan: Patient originally presented due to suicidal ideations; he reports he has been having trouble with his Management per [facility] health unit Admission and Anticipated Discharge Date Admission Date: July 25, 2023 Results & Data Results & Data Vital Signs (Past 12 Hours) Vital Signs Temp Pulse Pulse Resp BP Pulse Ox O2 Del Method 07/29/23 06:36 108 H 152/83 H 07/29/23 06:35 98.1 F 86 16 147/82 H 07/28/23 22:00 98.5 F 93 H 16 118/74 96 Room Air PG Care Time/CCT Total # of Minutes Spent Total Time Spent with Patient: Total time spent is greater than 50% in coordination of care (as documented) at patient's floor/unit and/or counseling patient: Coding Diagnoses Tachycardia R00.0 UTI (urinary tract infection) N39.0 Suicide ideation R45.851
[2023-07-29] MEDS: cloNIDine HCL 0.1 MG TAB PO SCH (08:22)
[2023-07-29] MEDS ORDERED: METOPROLOL SUCC 50MG EXT REL TAB PO SCH (09:00)
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
--- NOTE | 2023-07-29 14:35 | Communication Note ---
Date of Service: July 29, 2023 Reviewed patient's vital signs spoke to staff on the inpatient behavioral health unit. Patient's blood pressure is better controlled he does have some tachycardia which she is attributing to anxiety. As blood pressure seems to be controlled without side effects that the patient complained about with beta-chapito would recommend patient go home on clonidine 0.1 mg p.o. daily and follow-up his primary care provider for blood pressure checks At this point I medicine will follow from [place] with vital sign checks of the chart if there is need be for the patient to be physically seen please contact me and I will be glad to see him
[2023-07-29] MEDS: ALUMINUM/MAGNESIUM SUSP 30 ML UDC PO PRN (17:12)
[2023-07-30] MEDS ORDERED: DESTROY THIS MEDICATION ONE (08:48)
[2023-07-30] MEDS ORDERED: cloNIDine HCL 0.1 MG TAB PO SCH (09:00)
[2023-07-30] MEDS: cloNIDine HCL 0.1 MG TAB PO ONE (09:50)
--- NOTE | 2023-07-30 10:00 | Discharge Summary ---
Date of Service July 30, 2023 History of Present Illness 47 y/o white male h/o MDD, MIRNA who presents with suicidal ideation and gesture (pulled gun next to him) in the context of relationship stressors and depressive episode. Medical problems include HTN, T2DM, recurrent UTI, renal stones, DJD, GERD. Reports struggling with depression lately. He reports has been spending time with a new male friend and he was home alone. Ruminated and felt overwhelmed. He pulled the gun close to him from his nightstand and contemplated using it. He then called his mother who informed his and called EMS for assistance. Family has secured guns at this time. Reports recent depression and anxiety. C/o poor sleep, lower appetite, low energy, inc SI, and feelings of worthlessness. Reports inc in panic symptoms over last 2 weeks with episodes of chest pain, inc HR, loss of control. Reports h/o renal stones and UTI; denies current dysuria. Wants to communicate better with spouse and resolve current issues. Feels there is hope for the future. Denies current SI, HI, AVH. Physical Exam Mental Examination Appearance: Well Groomed Eye Contact: Maintains Eye Contact Motor Behavior: Unremarkable Speech: Normal Mood: Euthymic and Calm Affect: Appropriate and Constricted Thought Process: Intact, Linear and Logical Thought Content: Intact Hallucinations: None Insight: Fair Judgement: Fair Vital Signs (Past 24 Hours) Last Vital Signs Temp 36.7 C 07/30/23 08:11 Pulse 86 07/30/23 08:11 Resp 18 07/30/23 08:11 BP 157/103 H 07/30/23 08:11 Pulse Ox 96 07/30/23 08:11 O2 Del Method Room Air 07/29/23 22:00 Principal Diagnosis Major depressive disorder, recurrent episode with anxious distress Psychiatric Data See daily stay summary. In short, safety was maintained and the patient was cooperative with care. Medication changes included increasing home cymbalta to 90mg daily, d/c home lexapro, initiating Abilify 5mg QD, starting Keflex for UTI and they tolerated this well. A family session was and safety plan was completed prior to discharge. Day of Discharge Assessment Today the patient voices readiness for discharge. They note improvement in mood and deny thoughts to harm self or others. Thoughts remain organized and they are improved from admission. There is no evidence of psychosis. They agree to take mediations as prescribed and keep follow-up appointments. They are stable for discharge to outpatient level of care. Transition of Care Transition Of Care Record: was reviewed with the patient Advance Directives Advance Directives Information Provided: Yes Advance Directives: No Mental Health Advance Directive: No Advance Directives on File: No Living Will: No Power of Workday Financials Consultant: No Advance Directives Reason:: Declines as Mental Health Visit. 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) Stable Relationships: Yes Supportive Family: Yes Good Rapport with Provider: Yes Absence of Any Risk Factors Above: No Total Time Total Time Spent: Greater Than 30 Minutes Total Time Includes: Examination of the patient, Discharge Planning, Medication Reconciliation and Communication with other providers Discharge Data Consultations 07/27/23 11:16 Consult Hospitalist Routine Lab Results 07/25/23 07/25/23 07/25/23 18:10 18:24 18:34 WBC 12.03 H RBC 5.75 Hgb 16.4 Hct 49.8 MCV 86.6 MCH 28.5 MCHC 32.9 RDW Std Deviation 46.2 RDW Coeff of Tien 14.7 H Plt Count 290 MPV 9.7 Immature Gran % (Auto) 0.7 Neut % (Auto) 65.4 Lymph % (Auto) 25.4 [place] % (Auto) 4.8 Eos % (Auto) 3.0 Baso % (Auto) 0.7 Neut # (Auto) 7.87 H Lymph # (Auto) 3.05 [place] # (Auto) 0.58 Eos # (Auto) 0.36 Baso # (Auto) 0.09 Immature Gran # (Auto) 0.08 Sodium 137 Potassium 3.8 Chloride 103 Carbon Dioxide 26 Anion Gap 8 BUN 8 Creatinine 0.70 Est Cr Clr Drug Dosing 184.4 Est GFR ( Amer) 131.2 Est GFR (Non-Af Amer) 113.2 BUN/Creatinine Ratio 11.4 Glucose 118 H POC Glucose Estimat Average Glucose Hemoglobin A1c Calcium 9.1 Magnesium Total Bilirubin 0.8 AST 42 H ALT 41 Alkaline Phosphatase 90 Troponin I High Sens 5.8 Total Protein 8.1 Albumin 4.4 Globulin 3.7 Albumin/Globulin Ratio 1.2 Triglycerides Cholesterol LDL Cholesterol, Calc VLDL Cholesterol, Calc HDL Cholesterol Cholesterol/HDL Ratio Procalcitonin TSH 2.310 Urine Color Yellow Urine Appearance Cloudy A Urine pH 7.0 Ur Specific [place] 1.016 Urine Protein 3+ H Urine Glucose (UA) Negative Urine Ketones Negative Urine Blood 1+ H Urine Nitrite Positive A Urine Bilirubin Negative Urine Urobilinogen Positive H Ur Leukocyte Esterase 1+ H Urine WBC (Auto) >50 H Urine RBC (Auto) 6-10 H U Hyaline Cast (Auto) 0-2 U Epithel Cells (Auto) 0-2 Urine Bacteria (Auto) None Seen Salicylates < 3.0 L Urine Opiates Screen Neg Ur Methadone, Qual Neg Acetaminophen < 3 L Urine Barbiturates Neg Ur Phencyclidine (PCP) Neg U Amphetamin/Meth Scrn Neg MDMA (Ecstasy) Screen Neg U Benzodiazepines Scrn Neg Ur Cocaine Metabolite Neg U Marijuana (THC) Screen Neg Ethyl Alcohol mg/dL < 10.0 SARS-CoV-2, RNA, NAAT 07/25/23 07/25/23 07/26/23 18:40 20:30 08:00 WBC RBC Hgb Hct MCV MCH MCHC RDW Std Deviation RDW Coeff of Tien Plt Count MPV Immature Gran % (Auto) Neut % (Auto) Lymph % (Auto) [place] % (Auto) Eos % (Auto) Baso % (Auto) Neut # (Auto) Lymph # (Auto) [place] # (Auto) Eos # (Auto) Baso # (Auto) Immature Gran # (Auto) Sodium Potassium Chloride Carbon Dioxide Anion Gap BUN Creatinine Est Cr Clr Drug Dosing Est GFR ( Amer) Est GFR (Non-Af Amer) BUN/Creatinine Ratio Glucose POC Glucose 127 H Estimat Average Glucose Hemoglobin A1c Calcium Magnesium Total Bilirubin AST ALT Alkaline Phosphatase Troponin I High Sens 6.1 Total Protein Albumin Globulin Albumin/Globulin Ratio Triglycerides Cholesterol LDL Cholesterol, Calc VLDL Cholesterol, Calc HDL Cholesterol Cholesterol/HDL Ratio Procalcitonin TSH Urine Color Urine Appearance Urine pH Ur Specific [place] Urine Protein Urine Glucose (UA) Urine Ketones Urine Blood Urine Nitrite Urine Bilirubin Urine Urobilinogen Ur Leukocyte Esterase Urine WBC (Auto) Urine RBC (Auto) U Hyaline Cast (Auto) U Epithel Cells (Auto) Urine Bacteria (Auto) Salicylates Urine Opiates Screen Ur Methadone, Qual Acetaminophen Urine Barbiturates Ur Phencyclidine (PCP) U Amphetamin/Meth Scrn MDMA (Ecstasy) Screen U Benzodiazepines Scrn Ur Cocaine Metabolite U Marijuana (THC) Screen Ethyl Alcohol mg/dL SARS-CoV-2, RNA, NAAT NEGATIVE 07/27/23 07/27/23 07/28/23 07:24 14:21 06:47 WBC 12.01 H RBC 5.88 Hgb 17.1 Hct 50.2 MCV 85.4 MCH 29.1 MCHC 34.1 RDW Std Deviation 45.2 RDW Coeff of Tien 14.6 H Plt Count 296 MPV 9.5 Immature Gran % (Auto) 0.7 Neut % (Auto) 63.3 Lymph % (Auto) 26.4 [place] % (Auto) 5.4 Eos % (Auto) 3.4 Baso % (Auto) 0.8 Neut # (Auto) 7.60 H Lymph # (Auto) 3.17 [place] # (Auto) 0.65 H Eos # (Auto) 0.41 Baso # (Auto) 0.10 Immature Gran # (Auto) 0.08 Sodium 137 Potassium 3.8 Chloride 105 Carbon Dioxide 24 Anion Gap 8 BUN 10 Creatinine 0.96 Est Cr Clr Drug Dosing 134.4 Est GFR ( Amer) 109.4 Est GFR (Non-Af Amer) 94.4 BUN/Creatinine Ratio 10.4 Glucose 132 H POC Glucose 133 H 140 H Estimat Average Glucose Hemoglobin A1c Calcium 9.5 Magnesium 1.9 Total Bilirubin AST ALT Alkaline Phosphatase Troponin I High Sens 5.7 Total Protein Albumin Globulin Albumin/Globulin Ratio Triglycerides Cholesterol LDL Cholesterol, Calc VLDL Cholesterol, Calc HDL Cholesterol Cholesterol/HDL Ratio Procalcitonin TSH Urine Color Urine Appearance Urine pH Ur Specific [place] Urine Protein Urine Glucose (UA) Urine Ketones Urine Blood Urine Nitrite Urine Bilirubin Urine Urobilinogen Ur Leukocyte Esterase Urine WBC (Auto) Urine RBC (Auto) U Hyaline Cast (Auto) U Epithel Cells (Auto) Urine Bacteria (Auto) Salicylates Urine Opiates Screen Ur Methadone, Qual Acetaminophen Urine Barbiturates Ur Phencyclidine (PCP) U Amphetamin/Meth Scrn MDMA (Ecstasy) Screen U Benzodiazepines Scrn Ur Cocaine Metabolite U Marijuana (THC) Screen Ethyl Alcohol mg/dL SARS-CoV-2, RNA, NAAT 07/28/23 07/29/23 07/30/23 08:34 08:04 07:46 WBC RBC Hgb Hct MCV MCH MCHC RDW Std Deviation RDW Coeff of Tien Plt Count MPV Immature Gran % (Auto) Neut % (Auto) Lymph % (Auto) [place] % (Auto) Eos % (Auto) Baso % (Auto) Neut # (Auto) Lymph # (Auto) [place] # (Auto) Eos # (Auto) Baso # (Auto) Immature Gran # (Auto) Sodium Potassium Chloride Carbon Dioxide Anion Gap BUN Creatinine Est Cr Clr Drug Dosing Est GFR ( Amer) Est GFR (Non-Af Amer) BUN/Creatinine Ratio Glucose POC Glucose 146 H 134 H Estimat Average Glucose 163 Hemoglobin A1c 7.3 H Calcium Magnesium Total Bilirubin AST ALT Alkaline Phosphatase Troponin I High Sens Total Protein Albumin Globulin Albumin/Globulin Ratio Triglycerides 165 H Cholesterol 147 LDL Cholesterol, Calc 81 VLDL Cholesterol, Calc 33 H HDL Cholesterol 33 Cholesterol/HDL Ratio 4.5 Procalcitonin 0.10 TSH Urine Color Urine Appearance Urine pH Ur Specific [place] Urine Protein Urine Glucose (UA) Urine Ketones Urine Blood Urine Nitrite Urine Bilirubin Urine Urobilinogen Ur Leukocyte Esterase Urine WBC (Auto) Urine RBC (Auto) U Hyaline Cast (Auto) U Epithel Cells (Auto) Urine Bacteria (Auto) Salicylates Urine Opiates Screen Ur Methadone, Qual Acetaminophen Urine Barbiturates Ur Phencyclidine (PCP) U Amphetamin/Meth Scrn MDMA (Ecstasy) Screen U Benzodiazepines Scrn Ur Cocaine Metabolite U Marijuana (THC) Screen Ethyl Alcohol mg/dL SARS-CoV-2, RNA, NAAT Hospital Course (1) Major depressive disorder, recurrent episode with anxious distress: (2) UTI (urinary tract infection): (3) Poorly controlled type 2 diabetes mellitus: (4) Class 3 obesity: (5) GERD (gastroesophageal reflux disease): (6) Hypertension: Plan 07/29/23: Continue Cymbalta 30mg QAM, 60mg HS; Abilify 5mg QD. 07/28/23: Continue Cymbalta 30mg QAM, 60mg HS; Abilify 5mg QD. 07/27/23: Continue Cymbalta 30mg QAM, 60mg HS. Restart home Tamsulosin 0.4mg QAM. Start Aripiprazole 5mg daily for SNRI augmentation. Consult hospitalist for BP and UTI recs. 07/26/23: Increase Cymbalta to 30mg QAM, 60mg HS. Mental Health & Subst Abuse Tx Psychiatrist Name of Psychiatrist: [facility] Psychiatrist's Date Of Appointment With Psychiatric Provider: 08/09/23 Time of Appointment with Psychiatrist: 2:15 PM Psychiatric Appointment Comment: [address] [facility] [id number] Psychiatrist Release of Information: Obtained, Reviewed and Signed Therapist Name of Therapist: Ne Hurd Therapist's Phone Number: pt. will contact her directly via e-mail at d/c Date of Therapist Appointment: . Time of Therapist Appointment: . Therapy Appointment Comment: Virtual, every 2 weeks Therapist Release of Information: Obtained, Reviewed and Signed Post Discharge Appointments Primary Care Physician Name Of Family Doctor/PCP: Dr. العراقي [facility] Date of Future Appointment with PCP: 08/02/22 Time of Appointment with PCP: 9:00 Provider Appointment Comment: [address] [facility] [address] [place] [address] Primary Care Release of Information: Obtained, Reviewed and Signed Other #1: Name of Aftercare Appointment: [facility] (couples counseling) Phone Number of Aftercare Appointment: Time of Aftercare Appointment: Please contact regarding couples therapy. Aftercare Appointment Comment: [address], [place] [address] #2: Name of Aftercare Appointment: [facility] (couples counseling) Phone Number of Aftercare Appointment: [phone] Time of Aftercare Appointment: Please contact regarding couples therapy. Aftercare Appointment Comment: [address] [place] [address] Contact Information Discharge Discharge [address]: [address] [place] [id number] Discharge Plan Discharge Items Patient Disposition: Home - Self-Care Reason For Visit: UNSPECIFIED DEPRESSIVE DISORDER Discharge Diagnosis: (1) Major depressive disorder, recurrent episode with anxious distress: (2) UTI (urinary tract infection): (3) Poorly controlled type 2 diabetes mellitus: (4) Class 3 obesity: (5) GERD (gastroesophageal reflux disease): (6) Hypertension: Condition on Discharge: Fair Activity: Resume your previous activity Non-emergency contact: Primary Care Provider, Psychiatrist and Therapist Call non-emergency contact if: you have any medication questions and your symptoms worsen Follow-up/Referrals: Aidan العراقي PA-C [Primary Care Provider] - Diet: Regular Addtl Attending Provider Instructions: -Continue Cymbalta 90mg daily -Continue Abilify 5mg daily -Continue Clonidine 0.1mg PO daily and follow-up with primary care physician regarding blood pressure. May take at bedtime if too sedating. -Finish 3 more days of Cephalexin antibiotics Pending Studies at Discharge: No Stand-Alone Forms: My YesVideo, Smoking Cessation Medications and DC Order Prescriptions: New clonidine HCl 0.1 mg Tablet 0.1 mg PO QAM Qty: 30 0RF cephalexin 500 mg Capsule 500 mg PO QID Qty: 12 0RF aripiprazole [Abilify] 5 mg Tablet 5 mg PO DAILY Qty: 30 1RF duloxetine 60 mg Capsule,Delayed Release(Dr/Ec) 60 mg PO HS Qty: 30 1RF lorazepam 0.5 mg Tablet 0.5 mg PO BID PRN (Reason: anxiety) Qty: 60 0RF duloxetine 30 mg Capsule,Delayed Release(Dr/Ec) 30 mg PO QAM Qty: 30 1RF Continued Ozempic 0.25 mg or 0.5 mg (2 mg/3 mL) pen injector 0.25 mg subcut .COMPLEX Qty: 4.8 2RF Rx Instructions: 0.25 mg subcutaneously once weekly; testosterone [AndroGel] 20.25 mg/1.25 gram (1.62 %) gel in metered-dose pump 3 pump topical DAILY Qty: 150 5RF Rx Instructions: apply pump amount over max area of EACH upper arm and shoulder glipizide 2.5 mg Tablet Extended Release 24hr 10 mg PO QAM omeprazole 20 mg Tablet,Delayed Release (Dr/Ec) 20 mg PO QAM tamsulosin [Flomax] 0.4 mg capsule 0.4 mg PO DAILY Qty: 7 0RF Discontinued lorazepam [Ativan] 1 mg tablet 1 mg PO DAILY PRN (Reason: Anxiety) duloxetine 60 mg capsule,delayed release(DR/EC) 60 mg PO DAILY escitalopram oxalate 10 mg Tablet 10 mg PO DAILY Discharge Orders: Discharge Order (Routine); Ordered 07/30/23 Ordered By: Braden Chaves/Other Patient Handouts: Managing Type 2 Diabetes Admission Data Admit Date/Time: 07/25/23 21:51 Attending Provider: Braden Marin Admit Provider: Braden Marin Primary Care Provider: Aidan العراقي Other Providers: Kaleb Castle Other Interventions: Discharge Summary Assessment (RN) Last Done: 07/30/23 08:11 C[place] [address] D/C day mgmt > 30 min Patient Type Established History Detailed Exam Detailed Medical Decision Making Moderate Complexity Diagnoses Major depressive disorder, recurrent episode with anxious distress F33.9 UTI (urinary tract infection) N39.0 Poorly controlled type 2 diabetes mellitus E11.65 Class 3 obesity E66.01 GERD (gastroesophageal reflux disease) K21.9 Hypertension I10 Time Spent (min) 60
[2023-07-31] MEDS ORDERED: cloNIDine HCL 0.1 MG TAB PO SCH (09:00)
== END 2023-07-30 10:10 | disposition home or self-care (01) | DRG 885 ==
LOC: ED 18:04 → 3S 21:51 → ED 22:19

== ENCOUNTER 2023-08-12 20:05 | Inpatient (IN) ==
--- NOTE | 2023-08-12 20:44 | Emergency Department Note ---
Impression & Plan Depression with suicidal ideation, Urinary tract infection, Abrasion of left wrist ED Provider Note NAME: AHRIKA FARRIS AGE: 47 SEX: M : 1975 ARRIVES VIA: Ambulance INFORMANT: Patient, ED PROVIDER(S): Panda Conroy DO CHIEF COMPLAINT: Mental health evaluation HPI: The patient is a 47-year-old male who does have a mental health history who presented to the emergency department by ambulance because of suicidal ideation. The patient was recently left by his significant other. She left him last evening. They were supposed to get together this evening for a talk and discussed getting back together however instead his significant other sent him a picture of her with another man indicating that she wanted to break up. Because of this the patient had severe suicidal ideation. He did cut his left wrist. He has thoughts of cutting himself and bleeding and . ROS: See above HPI for pertinent positives & negatives. A total of 10 systems reviewed and were otherwise negative. PAST MEDICAL HISTORY: See Below PAST SURGICAL HISTORY: See Below FAMILY HISTORY: See Below SOCIAL HISTORY: See Below HOME MEDICATIONS: See Below ALLERGIES: See Below VITALS: See Below PHYSICAL EXAMINATION: GENERAL: The patient is awake and alert. He is very anxious and diaphoretic. EYES: The conjunctivae are clear. The pupils are round and reactive. EARS, NOSE, MOUTH AND THROAT: The nose is without any evidence of any deformity. NECK: The neck is nontender and supple. RESPIRATORY: Normal respiratory effort is noted there is no evidence of wheezing rhonchi or rales CARDIOVASCULAR: Regular rate and rhythm noted there no murmurs rubs or gallops normal S1 normal S2. GASTROINTESTINAL: The abdomen is soft. Abdomen is nontender. MUSCULOSKELETAL/EXTREMITIES: There is no evidence of gross deformity full range of motion is noted in the hips and shoulders. SKIN: Skin is cool and diaphoretic. There is no significant pedal edema. NEUROLOGIC: Patient is awake alert and oriented x3 strength is symmetric patellar reflexes are 2+ bilaterally PSYCH: The patient makes good eye contact mostly evaluation. His affect is very flat. The patient is admitting to suicidal ideation with a plan to cut himself and . MEDICAL DECISION MAKING: The patient is a 47-year-old male who presented to the emergency department for an evaluation of mental health problems. The patient was experiencing depression with suicidal ideation after recent break-up with his significant other. The patient has a small abrasion on his left wrist which was self- inflicted. He had thoughts of hurting himself further by cutting. The patient also was found to have urinary tract infection. He was treated recently for urinary tract infection. I did review the patient's recent urine culture and he was given a dose of IV Rocephin in the emergency department. He was also treated with IV fluids. On reevaluation he was somewhat improved. I discussed the patient's laboratory results with him. I discussed his condition with the Mental health casework specialist in the emergency department. At this time the patient is medically cleared. He is awaiting further disposition and evaluation for inpatient psychiatric treatment. Triage Nursing notes reviewed. Prior medical records reviewed Vital Signs: reviewed and remarkable for elevated blood pressure. Differential diagnosis: Mood disorder, infection, hypoglycemia, electrolyte abnormalities, cardiac sources, intracerebral event, toxicologic, trauma, neurologic, as well as other pathologies. ER treatment provided: See below Diagnostics interpreted by me: ECG: EKG was obtained in the emergency department. My interpretation is sinus tachycardia at 116 bpm. There is no ectopy. There were T wave inversions in the high lateral leads with nonspecific ST segment abnormalities. This was compared to a tracing from July 27, 2023. No changes were noted. Cardiac Monitoring: An order was placed for continuous cardiac monitoring. The monitor shows a rate of 90 bpm with sinus rhythm. Laboratory studies: As stated above and show below. Imaging studies: See below. Consultation(s): I discussed the patient's condition with the emergency department mental health casework specialist. The patient was signed out to Dr. Werner at change of shift. Please see her note for continuation of care and further disposition. Past Med/Surg History Problem List (Updated 08/12/23 @ 22:45 by Panda Conroy DO) Abrasion of left wrist (Acute) Urinary tract infection (Acute) Depression with suicidal ideation (Acute) Major depressive disorder, recurrent episode with anxious distress Poorly controlled type 2 diabetes mellitus Class 3 obesity GERD (gastroesophageal reflux disease) Hypertension Medical History UTI (urinary tract infection) Suicide ideation Hypogonadotropic hypogonadism in male Urinary retention UTI (urinary tract infection), bacterial Kidney stones Degenerative disc disease Attention deficit disorder (ADD) Post traumatic stress disorder Cardiac murmur "Mild" per pt No murmur noted per recent 04/23/22 anesthesia preop evaluation Surgical History History of cystoscopy Family history of reaction to anesthesia MOTHER > NAUSEA [place] teeth removed History of tonsillectomy and adenoidectomy Hx of cholecystectomy History of bilateral carpal tunnel release Family History Grandfather (Paternal) Diabetes Mother Kidney stone Social History Smoking Status: Current some day smoker Cigarettes Per Day: 1-2 X PER YEAR; Second Hand Exposure: No; Do You Dip or Chew Tobacco: No; Hx Alcohol Use: No Hx Substance Use: No Preferred Language: [place] Communication Ability: Effective Visual Impairment: Limited General Office Associate Required: No Beliefs That Will Affect Care: None Current Living Situation: Spouse Feels Safe at Home: Yes Gender Identity: Male Assistive Devices: Glasses Allergies Allergies Allergy/AdvReac Type Severity Reaction Status Date / Time buspirone [From BuSpar] Allergy Intermediate AGGRESSIVE Verified 06/24/23 12:42 AFTER TAKING SEVERAL DAYS metformin Allergy Unknown Verified 08/12/23 21:32 Home Meds Home Medications Medication Instructions Recorded Confirmed omeprazole 20 mg tablet,delayed 20 mg PO QAM 04/07/22 08/12/23 release aripiprazole 5 mg tablet (Abilify) 5 mg PO QAM 08/12/23 08/12/23 glipizide 10 mg tablet, extended 10 mg PO QAM 08/12/23 08/12/23 release 24 hr lorazepam 1 mg tablet 1 mg PO DAILY PRN Anxiety 08/12/23 08/12/23 nitrofurantoin 100 mg PO BID 08/12/23 08/12/23 monohydrate/macrocrystals 100 mg capsule tamsulosin 0.4 mg capsule (Flomax) 0.4 mg PO QAM 08/12/23 08/12/23 testosterone (AndroGel) 3 pump topical HS 08/12/23 08/12/23 Previous Rx's Medication Instructions Recorded semaglutide 0.25 mg or 0.5 mg (2 0.25 mg (0.368 mL) subcut .COMPLEX 03/21/24 mg/3 mL) subcutaneous pen injector #4.8 mL (Ozempic) clonidine HCl 0.1 mg tablet 0.1 mg PO QAM #30 tabs 07/30/23 duloxetine 30 mg capsule,delayed 30 mg PO QAM #30 caps 07/30/23 release duloxetine 60 mg capsule,delayed 60 mg PO HS #30 caps 07/30/23 release Results & Data (ED) Vital Signs Vital Signs - 24 hr 08/12/23 20:20 08/12/23 20:31 08/12/23 21:49 Temperature 37.4 C Temperature Source Oral Pulse Rate 125 H Pulse Rate [Finger] 98 H Respiratory Rate 18 19 Respiratory Effort / Characteristics Non-Labored Respiratory Depth Normal Respiratory Pattern Regular Blood Pressure 166/119 H Blood Pressure [Right Arm] 154/91 H Blood Pressure Mean 134 Blood Pressure Mean [Right Arm] 112 Blood Pressure Position [Right Arm] Sitting Pulse Oximetry 95 97 Oxygen Delivery Method Room Air Room Air Sepsis Recent Fever Within 48 Hours No Sepsis New/Unexplained Change in Mental Status No Sepsis Action Taken by Nursing No Action Required 08/12/23 23:00 Temperature Temperature Source Pulse Rate Pulse Rate [Finger] 110 H Respiratory Rate 19 Respiratory Effort / Characteristics Non-Labored Respiratory Depth Normal Respiratory Pattern Regular Blood Pressure Blood Pressure [Right Arm] 142/88 H Blood Pressure Mean Blood Pressure Mean [Right Arm] 106 Blood Pressure Position [Right Arm] Lying Pulse Oximetry 95 Oxygen Delivery Method Room Air Sepsis Recent Fever Within 48 Hours Sepsis New/Unexplained Change in Mental Status Sepsis Action Taken by [facility] Medications Current Medication List: was personally reviewed by me Laboratory Data Attestation: I reviewed the patient's lab results. 08/12/23 20:45 08/12/23 20:45 Lab Results 08/12/23 08/12/23 08/12/23 Range/Units 20:20 20:45 21:39 WBC 12.77 H (4.8-10.8) K/ul RBC 5.89 (4.70-6.10) M/uL Hgb 17.2 (14.0-18.0) g/dl Hct 50.5 (42.0-52.0) % MCV 85.7 (80.0-100.0) fL MCH 29.2 (25.0-34.0) pg MCHC 34.1 (32.0-36.0) g/dL RDW Std Deviation 44.5 (36.4-46.3) fL RDW Coeff of Tien 14.3 (11.5-14.5) % Plt Count 296 (130-400) K/uL MPV 9.6 (9.4-12.4) fL Immature Gran % (Auto) 0.5 % Neut % (Auto) 68.9 % Lymph % (Auto) 23.3 % [place] % (Auto) 5.6 % Eos % (Auto) 1.1 % Baso % (Auto) 0.6 % Neut # (Auto) 8.80 H (1.40-6.50) K/uL Lymph # (Auto) 2.98 (1.20-3.40) K/uL [place] # (Auto) 0.71 H (0.11-0.59) K/uL Eos # (Auto) 0.14 (0.00-0.50) K/uL Baso # (Auto) 0.08 (0.00-0.20) K/uL Immature Gran # (Auto) 0.06 (0.01-0.20) K/uL Sodium 137 (136-145) mmol/L Potassium 3.5 (3.5-5.1) mmol/L Chloride 104 (98-107) mmol/L Carbon Dioxide 24 (21-32) mmol/L Anion Gap 9 (3-11) BUN 10 (6-23) mg/dl Creatinine 0.84 (0.6-1.4) mg/dl Est Cr Clr Drug Dosing 158.7 ml/min Est GFR ( Amer) 121.7 ml/min Est GFR (Non-Af Amer) 105.0 ml/min BUN/Creatinine Ratio 11.9 (10-20) Glucose 183 H (70-99(Fasting)) mg/dl Calcium 9.1 (8.6-10.3) mg/dl Total Bilirubin 0.9 (0.2-1.0) mg/dl AST 38 (13-39) U/L ALT 47 (7-52) U/L Alkaline Phosphatase 82 (34-104) U/L Troponin I High Sens 9.6 (0-20) pg/ml Total Protein 8.0 (6.0-8.3) gm/dl Albumin 4.3 (3.4-5.0) gm/dl Globulin 3.7 (2.5-4.0) gm/dl Albumin/Globulin Ratio 1.2 (0.9-2) TSH 1.780 (0.300-4.500) uIu/ml Urine Color Dark Yellow Urine Appearance Clear (Clear) Urine pH 6.5 (4.5-7.5) Ur Specific [place] 1.021 (1.000-1.030) Urine Protein 3+ H (Negative) Urine Glucose (UA) Trace H (Negative) Urine Ketones Trace H (Negative) Urine Blood Trace H (Negative) Urine Nitrite Negative (Negative) Urine Bilirubin Negative (Negative) Urine Urobilinogen Negative (Negative) Ur Leukocyte Esterase 1+ H (Negative) Urine WBC (Auto) >50 H (0-5) /hpf Urine RBC (Auto) 3-5 H (0-2) /hpf U Hyaline Cast (Auto) 0-2 (0-2) /lpf U Epithel Cells (Auto) 0-2 (0-2) /hpf Urine Bacteria (Auto) None Seen (None Seen) Salicylates < 3.0 L (3.0-30) mg/dl Urine Opiates Screen Neg (Neg) Ur Methadone, Qual Neg (Neg) Acetaminophen < 3 L (10-30) ug/ml Urine Barbiturates Neg (Neg) Ur Phencyclidine (PCP) Neg (Neg) U Amphetamin/Meth Scrn Neg (Neg) MDMA (Ecstasy) Screen Neg (Neg) U Benzodiazepines Scrn Neg (Neg) Ur Cocaine Metabolite Neg (Neg) U Marijuana (THC) Screen Neg (Neg) Ethyl Alcohol mg/dL < 10.0 (<10.0) mg/dl SARS-CoV-2, RNA, NAAT NEGATIVE (NEGATIVE) Administered Medications Discontinued Medications Sodium Chloride (Nss) 1,000 mls @ 999 mls/hr IV .Q1H1M ONE Stop: 08/12/23 21:37 Last Infusion: 08/12/23 22:16 Dose: Infused Documented By: Admin: 08/12/23 21:12 Dose: 999 mls/hr Documented By: BRANDT Ceftriaxone Sodium (Rocephin) 2,000 mg in 50 mls @ 100 mls/hr IV NOW STA Stop: 08/12/23 22:28 Last Infusion: 08/12/23 22:54 Dose: Infused Documented By: Admin: 08/12/23 22:21 Dose: 100 mls/hr Documented By: BRANDT Lorazepam (Lorazepam 1 Mg Tab) 1 mg PO NOW STA Stop: 08/12/23 20:38 Last Admin: 08/12/23 21:09 Dose: 1 mg Documented By: BRANDT Discharge Plan Visit Data Chief Complaint: Mental Health Evaluation Stated Complaint: Laceration L Wrist ED Provider: Panda Conroy Discharge Problem: Depression with suicidal ideation, Urinary tract infection, Abrasion of left wrist Patient Disposition: Still a Patient Forms Stand Alone Forms: My [facility] [employer], Suicide Prevention Resources Prescriptions Prescriptions: No Action Ozempic 0.25 mg or 0.5 mg (2 mg/3 mL) pen injector 0.25 mg subcut .COMPLEX Qty: 4.8 2RF Rx Instructions: 0.25 mg subcutaneously once weekly; TUESDAYS omeprazole 20 mg Tablet,Delayed Release (Dr/Ec) 20 mg PO QAM clonidine HCl 0.1 mg Tablet 0.1 mg PO QAM Qty: 30 0RF Rx Instructions: Rx shows up in pharmacy records and pt claims he takes this but no bottle present duloxetine 60 mg Capsule,Delayed Release(Dr/Ec) 60 mg PO HS Qty: 30 1RF duloxetine 30 mg Capsule,Delayed Release(Dr/Ec) 30 mg PO QAM Qty: 30 1RF glipizide 10 mg tablet extended release 24hr 10 mg PO QAM nitrofurantoin monohyd/m-cryst 100 mg capsule 100 mg PO BID Rx Instructions: ordered 08/12/23 take for 7 days lorazepam 1 mg tablet 1 mg PO DAILY MDD 1 tablet PRN (Reason: Anxiety) tamsulosin [Flomax] 0.4 mg capsule 0.4 mg PO QAM aripiprazole [Abilify] 5 mg tablet 5 mg PO QAM testosterone [AndroGel] 20.25 mg/1.25 gram (1.62 %) gel in metered-dose pump 3 pump topical HS Rx Instructions: apply pump amount over max area of EACH upper arm and shoulder Referrals Referrals: Aidan العراقي PA-C [Primary Care Provider] - Discharge Problem: Urinary tract infection Qualifiers: Urinary tract infection type: site unspecified Hematuria presence: without hematuria Qualified Code(s): N39.0 - Urinary tract infection, site not specified Abrasion of left wrist Qualifiers: Encounter type: initial encounter Qualified Code(s): S60.812A - Abrasion of left wrist, initial encounter
[2023-08-12 20:59] LABS: Appearance Urine Clear (Clear); Bacteria Urine Automated None Seen (None Seen); Bilirubin Urine Negative (Negative); Blood Urine Trace (Negative); Cast Urine Automated 0-2 /lpf (0-2); Color Urine Dark Yellow; Epithelial Cell Urine Auto 0-2 /hpf (0-2); Glucose Urine UA Trace (Negative); Ketones Urine Trace (Negative); Leukocyte Esterase Urine 1+ (Negative); Nitrite Urine Negative (Negative); Protein Urine 3+ (Negative); Specific Gravity Urine 1.021 (1.000-1.030); Urobilinogen Urine Negative (Negative); WBC Urine Automated >50 /hpf (0-5); pH Urine 6.5 (4.5-7.5)
[2023-08-12] MEDS: LORazepam 1 MG TAB PO STA (21:09)
[2023-08-12] MEDS: SODIUM CHLORIDE 0.9% 1,000 ML IV ONE (21:12)
[2023-08-12 21:21] LABS: Basophils # (auto) 0.08 K/uL (0.00-0.20); Basophils % (auto) 0.6 %; Eosinophils # (auto) 0.14 K/uL (0.00-0.50); Eosinophils % (auto) 1.1 %; Hematocrit (blood only) 50.5 % (42.0-52.0); Hemoglobin 17.2 g/dl (14.0-18.0); Immature Granulocytes # (auto) 0.06 K/uL (0.01-0.20); Immature Granulocytes % (auto) 0.5 %; Lymphocytes # (auto) 2.98 K/uL (1.20-3.40); Lymphocytes % (auto) 23.3 %; Mean Corpuscular Hemoglobin 29.2 pg (25.0-34.0); Mean Corpuscular Hgb Conc 34.1 g/dL (32.0-36.0); Mean Corpuscular Volume 85.7 fL (80.0-100.0); Mean Platelet Volume 9.6 fL (9.4-12.4); Monocytes # (auto) 0.71 K/uL (0.11-0.59); Monocytes % (auto) 5.6 %; Neutrophils % (auto) 68.9 %; Platelet Count 296 K/uL (130-400); RDW Coefficient of Variation 14.3 % (11.5-14.5); RDW Standard Deviation 44.5 fL (36.4-46.3); Red Blood Count 5.89 M/uL (4.70-6.10); White Blood Count 12.77 K/ul (4.8-10.8)
[2023-08-12 21:39] LABS: Albumin Globulin Ratio 1.2 (0.9-2); Albumin Level 4.3 gm/dl (3.4-5.0); BUN Creatinine Ratio 11.9 (10-20); Bilirubin,Total 0.9 mg/dl (0.2-1.0); Calcium 9.1 mg/dl (8.6-10.3); Creatinine Clr Calc Pharmacy 158.7 ml/min; Est GFR (African American) 121.7 ml/min; Globulin 3.7 gm/dl (2.5-4.0); Potassium 3.5 mmol/L (3.5-5.1)
[2023-08-12 21:46] LABS: Troponin I High Sensitivity 9.6 pg/ml (0-20)
[2023-08-12 21:51] LABS: Amphetamines+Metham, Urine Neg (Neg); Barbiturates, Urine Neg (Neg); Benzodiazepine, Urine Neg (Neg); Cocaine, Urine Neg (Neg); MDMA (Ecstacy), Urine Neg (Neg); Marijuana, Urine Neg (Neg); Methadone, Urine Neg (Neg); Opiate, Urine Neg (Neg); Phencyclidine, Urine Neg (Neg)
[2023-08-12 21:55] LABS: Thyroid Stimulating Hormone 1.78 uIu/ml (0.300-4.500)
[2023-08-12 21:58] LABS: Acetaminophen < 3 ug/ml (10-30); Salicylate < 3.0 mg/dl (3.0-30)
[2023-08-12] MEDS: cefTRIAXone SODIUM 2,000 MG/50 ML BAG IV STA (22:21)
--- NOTE | 2023-08-13 00:57 | Emergency Department Note ---
ED Visit Note Patient signed out to me at change of shift from Dr. Conroy. 201 signed by me at 0041. Patient accepted at [address] .
[2023-08-13] MEDS ORDERED: ALUMINUM/MAGNESIUM SUSP 30 ML UDC PO PRN (01:14)
[2023-08-13] MEDS ORDERED: MAGNESIUM HYDROXIDE SUSP 30 ML UDC PO PRN (01:14)
[2023-08-13] MEDS ORDERED: BISMUTH SUBSALICYLATE LIQD 236 ML PO PRN (01:14)
[2023-08-13] MEDS ORDERED: SODIUM CHLORIDE 0.65% NA SOLN 45 ML (OCEAN) PRN (01:14)
[2023-08-13] MEDS: hydrOXYzine HCl 25 MG TAB PO PRN ×2 (01:21→15:00)
[2023-08-13 06:04] LABS: Chol HDL Ratio 3.8 (0-5)
[2023-08-13 07:21] LABS: Estimated Average Glucose 157 mg/dl; Hemoglobin A1C 7.1 % (4.5-5.6)
[2023-08-13] MEDS: ACETAMINOPHEN 325 MG TAB PO PRN (10:17)
[2023-08-13] MEDS: cloNIDine HCL 0.1 MG TAB PO ONE (10:46)
[2023-08-13] MEDS: cephALEXin 500 MG CAP PO SCH (10:55)
--- NOTE | 2023-08-13 13:03 | Electrocardiogram Report ---
Test Reason : Blood Pressure : / mmHG Vent. Rate : 116 BPM Atrial Rate : 116 BPM P-R Int : 182 ms QRS Dur : 074 ms QT Int : 266 ms P-R-T Axes : 045 026 123 degrees QTc Int : 369 ms Sinus tachycardia Possible Left atrial enlargement Cannot rule out Anterior infarct , age undetermined T wave abnormality, consider lateral ischemia Abnormal ECG When compared with ECG of 27-JUL-2023 12:15, No significant change was found Confirmed by Panda Birmingham ([id number]) on 08/13/2023 1:03:33 PM Referred By: REFERRED SELF Confirmed By:Panda Birmingham
--- NOTE | 2023-08-13 13:32 | History & Physical ---
Date of Service August 13, 2023 Impression / Recommendations Impression 47 year old male with past psychiatric history of depression who presented with suicidal ideations after his told him he was leaving her. (1) Major depressive disorder, recurrent episode with anxious distress: Plan Admit to psych inpatient unit. Continue most outpatient medications including antibiotics treating his UTI. Patient admits that this admission is not due to his medications being inapropriate but rather due to the grief from his marriage being over. Attend all milieu and therapy sessions. 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 Chief Complaint "she blindsided me". History of Present Illness 47 year old male with past psychiatric history of depression who presented to the hospital with suicidal ideations after his let him know that she was leaving him by sending him photos of herself and her new braydon. The patient was recently discharged from this facility after another similar episode due to marital strife. He went home believing that they were going to work on the marriage. The patient was very future oriented and hopeful, wanting to work on their marital issues and get in shape by [email or web address]. He states that they had spent a wonderful day together yesterday so it was a complete shock when later she let him know she was leaving him. At the time of our interview, the patient denied suicidal and homicidal ideation and showed no signs of depression, ac or psychosis. Past Psychiatric History Previous Psych History: previously admitted to this unit and discharged just a couple of weeks ago. He states that he was compliant with all medications and follow up since that time. Current Psychiatric Diagnosis: MDD Do You Have Access To A Gun?: No (Parents secured guns,in safe,he does not have brantley) Allergies Allergy/AdvReac Type Severity Reaction Status Date / Time buspirone [From BuSpar] Allergy Intermediate AGGRESSIVE Verified 06/24/23 12:42 AFTER TAKING SEVERAL DAYS metformin Allergy Unknown Verified 08/12/23 21:32 Home Medications Medication Instructions Recorded Confirmed Type omeprazole 20 mg tablet,delayed 20 mg PO QAM 04/07/22 08/12/23 History release semaglutide 0.25 mg or 0.5 mg (2 0.25 mg (0.368 mL) subcut .COMPLEX 06/10/23 08/12/23 Rx mg/3 mL) subcutaneous pen injector #4.8 mL ([email or web address]) clonidine HCl 0.1 mg tablet 0.1 mg PO QAM #30 tabs 07/30/23 08/12/23 Rx duloxetine 30 mg capsule,delayed 30 mg PO QAM #30 caps 07/30/23 08/12/23 Rx release duloxetine 60 mg capsule,delayed 60 mg PO HS #30 caps 07/30/23 08/12/23 Rx release aripiprazole 5 mg tablet (Abilify) 5 mg PO QAM 08/12/23 08/12/23 History glipizide 10 mg tablet, extended 10 mg PO QAM 08/12/23 08/12/23 History release 24 hr lorazepam 1 mg tablet 1 mg PO DAILY PRN Anxiety 08/12/23 08/12/23 History nitrofurantoin 100 mg PO BID 08/12/23 08/12/23 History monohydrate/macrocrystals 100 mg capsule tamsulosin 0.4 mg capsule (Flomax) 0.4 mg PO QAM 08/12/23 08/12/23 History testosterone (AndroGel) 3 pump topical HS 08/12/23 08/12/23 History Family History Family Mental Health History Comment: Maternal side depression and anxiety.Paternal uncle completed suicide Alcohol History Hx of Alcohol Use Over the Past 12 Months: No AUDIT Total Score: 0 Smoking Use Have You Smoked or Used Tobacco Products in the Last 30 Days: No tobacco type: cigars Smoking Status: Current some day smoker Substance History Hx of Prescription Med Misuse Over the Past 12 Months: No Hx of Over the Counter Med Misuse Over the Past 12 Months: No Hx of Inhalent Misuse Over the Past 12 Months: No Hx of Organic Substance Use Over the Past 12 Months: No Hx of Illegal Substances/Street Drug Use Over Past 12 Months: No Problems as a Result of Past Substance Use: None Identified Personal History Living Arrangements: Home Living Arrangements Comments: Mobile home Highest Grade Completed: High School Graduate and Some College Highest Grade Completed Comment: 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 Marital Status: Number Of Children: 0 Beliefs That Will Affect Care: None Hx Legal Problems: No Hx Traumatic Life Events: Yes Patient History Medical History UTI (urinary tract infection) Suicide ideation Hypogonadotropic hypogonadism in male Urinary retention UTI (urinary tract infection), bacterial Kidney stones Degenerative disc disease Attention deficit disorder (ADD) Post traumatic stress disorder Cardiac murmur "Mild" per pt No murmur noted per recent 04/23/22 anesthesia preop evaluation Surgical History History of cystoscopy Family history of reaction to anesthesia MOTHER > NAUSEA [place] teeth removed History of tonsillectomy and adenoidectomy Hx of cholecystectomy History of bilateral carpal tunnel release Family History Grandfather (Paternal) Diabetes Mother Kidney stone Social History Smoking Status: Current some day smoker Cigarettes Per Day: 1-2 X PER YEAR; Second Hand Exposure: No; Do You Dip or Chew Tobacco: No; Hx Alcohol Use: No Hx Substance Use: No Preferred Language: Greek Communication Ability: Effective Visual Impairment: Limited Leather Carver Required: No Beliefs That Will Affect Care: None Current Living Situation: Spouse Feels Safe at Home: Yes Gender Identity: Male Assistive Devices: Glasses Physical Exam Mental Examination: Appearance: Well Groomed Eye Contact: Maintains Eye Contact Motor Behavior: Unremarkable Speech: Normal Mood: Anxious and Dyphoric Affect: Labile and Sad Thought Process: Intact Hallucinations: None Insight: Good Judgement: Fair Psychiatric: Orientation: alert, oriented x 3 and cooperative Apperance: appropriately dressed and appropriately groomed Eye Contact: good eye contact Motor Behavior: steady gait and station Speech: normal rate/rhythm/volume of speech Affect: + depressed affect and + anxious affect Mood: + depressed mood and + anxious mood Thought Process: goal directed thought process, linear/logical thought process and clear/coherent thought process Thought Content: reality based without delusions Suicidal Thoughts: denies suicidal thoughts, denies suicidal plan and denies suicidal intent Homicidal Thoughts: denies homicidal thoughts, denies homicidal plan and denies homicidal intent Hallucinations: no auditory hallucinations, no visual hallucinations, no tactile hallucinations and no gustatory hallucinations Cognition: recent m andi grossly intact, remote memory grossly intact, attention grossly intact and language grossly intact Estimated Intelligence: average estimated intelligence Insight: good insight Judgment: + fair judgement Vital Signs (Past 24 Hours): Last Vital Signs Temp 36.8 C 08/13/23 06:46 Pulse 112 H 08/13/23 06:46 Resp 18 08/13/23 06:46 BP 166/96 H 08/13/23 06:46 Pulse Ox 97 08/13/23 02:31 O2 Del Method Room Air 08/13/23 02:31 Results & Data ([facility]) Laboratory Results Laboratory Results - last 24 hr 08/12/23 08/12/23 08/12/23 20:20 20:45 21:39 WBC 12.77 H RBC 5.89 Hgb 17.2 Hct 50.5 MCV 85.7 MCH 29.2 MCHC 34.1 RDW Std Deviation 44.5 RDW Coeff of Tien 14.3 Plt Count 296 MPV 9.6 Immature Gran % (Auto) 0.5 Neut % (Auto) 68.9 Lymph % (Auto) 23.3 [place] % (Auto) 5.6 Eos % (Auto) 1.1 Baso % (Auto) 0.6 Neut # (Auto) 8.80 H Lymph # (Auto) 2.98 [place] # (Auto) 0.71 H Eos # (Auto) 0.14 Baso # (Auto) 0.08 Immature Gran # (Auto) 0.06 Sodium 137 Potassium 3.5 Chloride 104 Carbon Dioxide 24 Anion Gap 9 BUN 10 Creatinine 0.84 Est Cr Clr Drug Dosing 158.7 Est GFR ( Amer) 121.7 Est GFR (Non-Af Amer) 105.0 BUN/Creatinine Ratio 11.9 Glucose 183 H Estimat Average Glucose Hemoglobin A1c Calcium 9.1 Total Bilirubin 0.9 AST 38 ALT 47 Alkaline Phosphatase 82 Troponin I High Sens 9.6 Total Protein 8.0 Albumin 4.3 Globulin 3.7 Albumin/Globulin Ratio 1.2 Triglycerides 160 H Cholesterol 140 LDL Cholesterol, Calc 71 VLDL Cholesterol, Calc 32 H HDL Cholesterol 37 Cholesterol/HDL Ratio 3.8 TSH 1.780 Urine Color Dark Yellow Urine Appearance Clear Urine pH 6.5 Ur Specific [place] 1.021 Urine Protein 3+ H Urine Glucose (UA) Trace H Urine Ketones Trace H Urine Blood Trace H Urine Nitrite Negative Urine Bilirubin Negative Urine Urobilinogen Negative Ur Leukocyte Esterase 1+ H Urine WBC (Auto) >50 H Urine RBC (Auto) 3-5 H U Hyaline Cast (Auto) 0-2 U Epithel Cells (Auto) 0-2 Urine Bacteria (Auto) None Seen Salicylates < 3.0 L Urine Opiates Screen Neg Ur Methadone, Qual Neg Acetaminophen < 3 L Urine Barbiturates Neg Ur Phencyclidine (PCP) Neg U Amphetamin/Meth Scrn Neg MDMA (Ecstasy) Screen Neg U Benzodiazepines Scrn Neg Ur Cocaine Metabolite Neg U Marijuana (THC) Screen Neg Ethyl Alcohol mg/dL < 10.0 SARS-CoV-2, RNA, NAAT NEGATIVE 08/13/23 Unknown WBC RBC Hgb Hct MCV MCH MCHC RDW Std Deviation RDW Coeff of Tien Plt Count MPV Immature Gran % (Auto) Neut % (Auto) Lymph % (Auto) [place] % (Auto) Eos % (Auto) Baso % (Auto) Neut # (Auto) Lymph # (Auto) [place] # (Auto) Eos # (Auto) Baso # (Auto) Immature Gran # (Auto) Sodium Potassium Chloride Carbon Dioxide Anion Gap BUN Creatinine Est Cr Clr Drug Dosing Est GFR ( Amer) Est GFR (Non-Af Amer) BUN/Creatinine Ratio Glucose Estimat Average Glucose 157 Hemoglobin A1c 7.1 H Calcium Total Bilirubin AST ALT Alkaline Phosphatase Troponin I High Sens Total Protein Albumin Globulin Albumin/Globulin Ratio Triglycerides Cholesterol LDL Cholesterol, Calc VLDL Cholesterol, Calc HDL Cholesterol Cholesterol/HDL Ratio TSH Urine Color Urine Appearance Urine pH Ur Specific [place] Urine Protein Urine Glucose (UA) Urine Ketones Urine Blood Urine Nitrite Urine Bilirubin Urine Urobilinogen Ur Leukocyte Esterase Urine WBC (Auto) Urine RBC (Auto) U Hyaline Cast (Auto) U Epithel Cells (Auto) Urine Bacteria (Auto) Salicylates Urine Opiates Screen Ur Methadone, Qual Acetaminophen Urine Barbiturates Ur Phencyclidine (PCP) U Amphetamin/Meth Scrn MDMA (Ecstasy) Screen U Benzodiazepines Scrn Ur Cocaine Metabolite U Marijuana (THC) Screen Ethyl Alcohol mg/dL SARS-CoV-2, RNA, NAAT Current Inpatient Medications Current Inpatient Medications: Current Inpatient Medications Acetaminophen (Acetaminophen 325 Mg Tab) 650 mg PO Q4H PRN PRN Reason: Headache or Minor Fever Stop: 09/12/23 01:13 Last Admin: 08/13/23 10:17 Dose: 650 mg Al Hydrox/Mg Hydrox/Simethicone (Aluminum/Magnesium Susp 30 Ml Udc) 30 ml PO Q4H PRN PRN Reason: GI Upset Stop: 09/12/23 01:13 Aripiprazole (Aripiprazole 5 Mg Tab) 5 mg PO QAM [facility] Stop: 09/13/23 08:59 Bismuth Subsalicylate (Bismuth Subsalicylate Liqd 236 Ml) 15 ml PO PRN PRN PRN Reason: Loose Stool Stop: 09/12/23 01:13 Cephalexin HCl (Cephalexin 500 Mg Cap) 500 mg PO BID [facility]; Protocol Stop: 08/18/23 10:29 Last Admin: 08/13/23 10:55 Dose: 500 mg Clonidine HCl (Clonidine Hcl 0.1 Mg Tab) 0.2 mg PO QAM [facility] Stop: 09/13/23 08:59 Clonidine HCl (Clonidine Hcl 0.1 Mg Tab) 0.1 mg PO QAM [facility] Stop: 09/13/23 08:59 Duloxetine HCl (Duloxetine Hcl 30 Mg Cap) 30 mg PO QAM [facility] Stop: 09/13/23 08:59 Duloxetine HCl (Duloxetine Hcl 60 Mg Cap) 60 mg PO HS [facility] Stop: 09/12/23 21:59 Hydroxyzine HCl (Hydroxyzine Hcl 25 Mg Tab) 50 mg PO HSZ PRN PRN Reason: Insomnia Stop: 09/12/23 01:13 Last Admin: 08/13/23 01:21 Dose: 50 mg Hydroxyzine HCl (Hydroxyzine Hcl 25 Mg Tab) 25 mg PO Q4H PRN PRN Reason: Anxiety Stop: 09/12/23 01:13 Magnesium Hydroxide (Magnesium Hydroxide Susp 30 Ml Udc) 30 ml PO DAILY PRN PRN Reason: Constipation Stop: 09/12/23 01:13 Non-Formulary Medication (Glipizide) 10 mg PO QAM [facility] Stop: 09/13/23 08:59 Non-Formulary Medication (Semaglutide [Ozempic]) 0.25 mg SQ .COMPLEX [facility] Stop: 09/12/23 13:29 Non-Formulary Medication (Testosterone [Androgel]) 3 pump TOP HS [facility] Stop: 09/12/23 21:59 Pantoprazole Sodium (Pantoprazole 40 Mg Tab) 40 mg PO QAM [facility] Stop: 09/13/23 08:59 Sodium Chloride (Sodium Chloride 0.65% Na Soln 45 Ml ([place])) 1 - 2 sprays NA PRN PRN PRN Reason: Nasal Dryness/Congestion Stop: 09/12/23 01:13 Tamsulosin HCl (Tamsulosin Hcl 0.4 Mg Cap) 0.4 mg PO QAM [facility] Stop: 09/13/23 08:59
--- NOTE | 2023-08-13 14:11 | Hospitalist Progress Note ---
Date of Service August 13, 2023 Assessment & Plan (1) Depression with suicidal ideation: Plan: Patient with a 201 admission back to our behavioral health unit for evaluation and continued treatment of his major depression (2) Hypertension: Plan: Regarding uncontrolled hypertension and contributed to by uncontrolled diabetes and obesity. Patient reinstated on clonidine therapy 0.1 mg to be given today and then 0.2 starting on 08/13. Patient wishes to avoid beta-blockers may consider ARB or EVIE as it would have renal protective effects for his diabetes Patient currently also on tamsulosin which will help with blood pressure but is also for his BPH (3) Poorly controlled type 2 diabetes mellitus: Plan: Glycemic consult is in place to manage his diabetes Currently holding his semaglutide but continue his glipizide (4) Urinary tract infection: Plan: Prophylactic starting Keflex therapy awaiting urine culture. Initial pinpoint growth reintubating Admission and Anticipated Discharge Date Admission Date: August 13, 2023 Subjective 47-year-old male admitted to [facility] for anxiety and depression. Was recently in our behavioral health unit from 07 25 through during that admission he was treated for urinary tract infection and hypertension. Clonidine seem to be improving his hypertension, his previous urinary infection was Klebsiella pneumonia treated with Keflex. Patient returns again with similar behavioral health issues hypertension is uncontrolled he is not on clonidine at this time urine culture is pending he will be restarted on Keflex. Currently the patient denies chest pain pressure shortness of breath headache visual disturbances. He states he did not go on his blood pressure medications after discharge and previously has had intolerance to beta-blockers due to fatigue. He wishes to stay away from beta-blockers at this time. He endorses with his mental health issues he did not institute any lifestyle changes such as salt restriction or diet and exercise. Review of Systems Review of Systems: Mild distress and fatigue no headache, no visual changes no speech or swallowing issues no chest pain, pressure or palpitations no shortness of breath, cough or wheezes no abdominal pain, nausea or vomiting, diarrhea or constipation no dysuria, hematuria or frequency no focal joint pain or swelling no back pain, CVA tenderness or radicular pain no bruising, bleeding or rashes no focal signs of weakness or numbness or altered sensation Physical Exam Physical Exam: The patient appeared well nourished and normally developed. He has a BMI of 53.9 Vital signs as documented. Head exam is normocephalic atraumatic Lungs are clear to auscultation, no focal loss of breath sounds Cardiac exam, Rhythm is regular.. No murmurs, rubs or gallops. Abdominal exam reveals normal bowel sounds, soft non tender, no masses Extremities are nonedematous and both pedal pulses are present Neurologic exam is alert and oriented, no focal loss of strength or sensation Results & Data Results & Data Vital Signs (Past 12 Hours) Vital Signs Temp Pulse Pulse Resp BP Pulse Ox O2 Del Method 08/13/23 06:46 112 H 166/96 H 08/13/23 06:46 98.2 F 111 H 18 168/119 H 08/13/23 02:31 98.6 F 107 H 20 160/113 H 97 Room Air Laboratory Results Reviewed CBC reviewed chemistry PG Care Time/CCT Total # of Minutes Spent Total Time Spent with Patient: Total time spent is greater than 50% in coordination of care (as documented) at patient's floor/unit and/or counseling patient: Coding Level of Care Code 09537 SUB INP/OBS CARE 2/35MIN Diagnoses Depression with suicidal ideation F32.A; R45.851 Hypertension I10 Poorly controlled type 2 diabetes mellitus E11.65 Urinary tract infection N39.0 Hematuria presence: without hematuria Urinary tract infection type: site unspecified (4) Urinary tract infection Hematuria presence: without hematuria Urinary tract infection type: site unspecified Qualified Code(s): N39.0 - Urinary tract infection, site not specified
[2023-08-13] MEDS: DULoxetine HCL 60 MG CAP PO SCH (21:26)
[2023-08-14] MEDS: ARIPiprazole 5 MG TAB PO SCH (08:37)
[2023-08-14] MEDS: cloNIDine HCL 0.1 MG TAB PO SCH (08:37)
[2023-08-14] MEDS: LOSARTAN POTASSIUM 25 MG TAB PO SCH (08:38)
[2023-08-14] MEDS: PANTOprazole 40 MG TAB PO SCH (08:38)
[2023-08-14] MEDS: DULoxetine HCL 30 MG CAP PO SCH (08:38)
[2023-08-14] MEDS: glipiZIDE ER 2.5 MG TABCR PO SCH (08:38)
[2023-08-14] MEDS: TAMSULOSIN HCL 0.4 MG CAP PO SCH (08:46)
[2023-08-14] MEDS ORDERED: cloNIDine HCL 0.1 MG TAB PO SCH (09:00)
--- NOTE | 2023-08-14 09:46 | Psychiatric Progress Note ---
Date of Service August 14, 2023 Impression / Recommendations Impression 47 year old man with past psychiatric history of depression who presented with suicidal ideations after his told him he was leaving her. Diagnostically consistent with major depressive episode with anxious distress and bereavement. 08/14/2023: Mood improving with no SI, more future-oriented. Continue to monitor given tomorrow is the date of his wedding anniversary and his birthday so a very emotionally triggering day. If he continues to feel safe will work on discharge as he has signed a 72 hour notice and is agreeable to family meeting tomorrow. Overall, I spent a total of 36 minutes on this case including meeting with the patient, reviewing the chart, nursing report, multidisciplinary team meeting, orders, and documentation. (1) Major depressive disorder, recurrent episode with anxious distress: Plan 08/14/2023: Continue current medications and tx plan. shelter goal of tapering abilify as mood improves. He requests losartan be switched to HS dosing due to significant fatigue today after starting higher dose. 08/12: Admit to psych inpatient unit. Continue most outpatient medications including antibiotics treating his UTI. Patient admits that this admission is not due to his medications being inappropriate but rather due to the grief from his marriage being over. Attend all milieu and therapy sessions. Suicide Risk Level Suicide Risk Level: Moderate (q15 min suicide checks) (SI with plan and self- harm prior to admission, now denying SI and mood improving, feels safe in the hospital ) Risk Factors Assessment Do You Have Access To A Gun?: No (Parents secured guns,in safe,he does not have brantley) Protective Factors Assessment Employed: Yes ([employer]) Interval History Identifying Information HARIKA FARRIS is a 47-year-old M who currently lives alone, has a history of depression, and was admitted on 08/13/23 00:21 on a 201 voluntary basis for suicidal ideation after his told him that she was going to leave him. Chief Complaint "I feel safe now". Review of Systems Sleep Information Total Hours of Sleep: 5 Sleep Comments: Pt requested PRN Vistaril for sleep Meal Information Percent Meal Consumed - Breakfast: 100 Percent Meal Consumed - Lunch: 100 Percent Meal Consumed - Dinner: 100 Subjective Subjective Patient was seen & assessed and interval progress reviewed with treatment team nursing and social work. Very tearful yesterday but able to process more throughout the day. Feels his actions were impulsive to self-harm. He put in a 72 hour notice which expires 08/15 at 1253. Reports ongoing grief and periods of sadness from his asking suddenly to divorce but no longer having SI. He attributes this to getting lots of calls and support from family and friends and having support in the hospital to process. He is hopeful to be discharged soon. Discussed ensuring today and start of tomorrow continues to go well given that tomorrow is his birthday and wedding anniversary and he acknowledges that will make it a difficult day. He likes his psychiatric medications as they are, finds abilify helpful for reducing ruminations. Physical Exam Psychiatric Orientation: alert, oriented x 3 and cooperative Apperance: appropriately dressed and appropriately groomed Eye Contact: good eye contact Motor Behavior: steady gait and station Speech: normal rate/rhythm/volume of speech Affect: + depressed affect Mood: + depressed mood and + anxious mood Thought Process: goal directed thought process Thought Content: reality based without delusions Suicidal Thoughts: denies suicidal thoughts, denies suicidal plan and denies suicidal intent Homicidal Thoughts: denies homicidal thoughts, denies homicidal plan and denies homicidal intent Hallucinations: no auditory hallucinations, no visual hallucinations, no tactile hallucinations and no gustatory hallucinations Cognition: recent memory grossly intact, remote memory grossly intact, attention grossly intact and language grossly intact Insight: good insight Judgment: + fair judgement Vital Signs (Past 24 Hours) Last Vital Signs Temp 36.7 C 08/14/23 01:56 Pulse 103 H 08/14/23 01:56 Resp 16 08/14/23 01:56 BP 162/106 H 08/14/23 01:56 Pulse Ox 97 08/14/23 01:56 O2 Del Method Room Air 08/14/23 01:56 Results & Data ([facility]) Current Inpatient Medications Current Inpatient Medications: Current Inpatient Medications Acetaminophen (Acetaminophen 325 Mg Tab) 650 mg PO Q4H PRN PRN Reason: Headache or Minor Fever Stop: 09/12/23 01:13 Last Admin: 08/13/23 10:17 Dose: 650 mg Al Hydrox/Mg Hydrox/Simethicone (Aluminum/Magnesium Susp 30 Ml Udc) 30 ml PO Q4H PRN PRN Reason: GI Upset Stop: 09/12/23 01:13 Aripiprazole (Aripiprazole 5 Mg Tab) 5 mg PO QAM [facility] Stop: 09/13/23 08:59 Last Admin: 08/14/23 08:37 Dose: 5 mg Bismuth Subsalicylate (Bismuth Subsalicylate Liqd 236 Ml) 15 ml PO PRN PRN PRN Reason: Loose Stool Stop: 09/12/23 01:13 Cephalexin HCl (Cephalexin 500 Mg Cap) 500 mg PO BID [facility]; Protocol Stop: 08/18/23 10:29 Last Admin: 08/14/23 08:37 Dose: 500 mg Clonidine HCl (Clonidine Hcl 0.1 Mg Tab) [facility] [place] Stop: 09/13/23 08:59 Last Admin: 08/14/23 08:37 Dose: 0.2 mg Duloxetine HCl (Duloxetine Hcl 30 Mg Cap) 30 mg PO QAM [facility] Stop: 09/13/23 08:59 Last Admin: 08/14/23 08:38 Dose: 30 mg Duloxetine HCl (Duloxetine Hcl 60 Mg Cap) 60 mg PO HS [facility] Stop: 09/12/23 21:59 Last Admin: 08/13/23 21:26 Dose: 60 mg Glipizide (Glipizide Er 2.5 Mg Tabcr) [facility] Stop: 09/13/23 08:59 Last Admin: 08/14/23 08:38 Dose: 10 mg Hydroxyzine HCl (Hydroxyzine Hcl 25 Mg Tab) 50 mg PO HSZ PRN PRN Reason: Insomnia Stop: 09/12/23 01:13 Last Admin: 08/13/23 21:27 Dose: 50 mg Hydroxyzine HCl (Hydroxyzine Hcl 25 Mg Tab) 25 mg PO Q4H PRN PRN Reason: Anxiety Stop: 09/12/23 01:13 Last Admin: 08/14/23 07:59 Dose: 25 mg Losartan Potassium (Losartan Potassium 25 Mg Tab) 25 mg PO QAM [facility] Stop: 09/13/23 08:59 Last Admin: 08/14/23 08:38 Dose: 25 mg Magnesium Hydroxide (Magnesium Hydroxide Susp 30 Ml Udc) 30 ml PO DAILY PRN PRN Reason: Constipation Stop: 09/12/23 01:13 Miscellaneous (Ozempic--Order Awaiting Action) 1 each N/A QS [facility] Stop: 09/12/23 15:59 Last Admin: 08/14/23 08:52 Dose: Not Given Miscellaneous (Order Awaiting Action) 1 each N/A QS [facility] Stop: 09/12/23 15:59 Last Admin: 08/14/23 08:52 Dose: Not Given Pantoprazole Sodium (Pantoprazole 40 Mg Tab) 40 mg PO QAM [facility] Stop: 09/13/23 08:59 Last Admin: 08/14/23 08:38 Dose: 40 mg Sodium Chloride (Sodium Chloride 0.65% Na Soln 45 Ml ([place])) 1 - 2 sprays NA PRN PRN PRN Reason: Nasal Dryness/Congestion Stop: 09/12/23 01:13 Tamsulosin HCl (Tamsulosin Hcl 0.4 Mg Cap) 0.4 mg PO QAM [facility] Stop: 09/13/23 08:59 Last Admin: 08/14/23 08:46 Dose: 0.4 mg Mental Health & Subst Abuse Tx Psychiatrist Name of Psychiatrist: Leoncio Date Of Appointment With Psychiatric Provider: 08/08/2023 Time of Appointment with Psychiatrist: 2:30pm Therapist Name of Therapist: Ne Hurd [facility] [employer] [facility] Name of [facility] [employer] [facility]: [facility] Phone Number for Art[employer] [facility]: Case Management Appointment Comment: Please call if interested in Case Management services. Post Discharge Appointments Primary Care Physician Name Of Family Doctor/PCP: Dr. العراقي [facility] Primary Care Contact Information Discharge Discharge Address: [address] [place] [address] D[place]GENES Luis [id number]
--- NOTE | 2023-08-14 15:59 | Hospitalist Progress Note ---
Date of Service August 14, 2023 Assessment & Plan (1) Depression with suicidal ideation: Plan: Patient with a 201 admission back to our behavioral health unit for evaluation and continued treatment of his major depression (2) Hypertension: Plan: Regarding uncontrolled hypertension and contributed to by uncontrolled diabetes and obesity. Patient reinstated on clonidine therapy 0.1 mg to be given today and then 0.2 starting on 08/13. Patient wishes to avoid beta-blockers add losartan, increased dose 05/16/23 Patient currently also on tamsulosin which will help with blood pressure but is also for his BPH (3) Poorly controlled type 2 diabetes mellitus: Plan: Glycemic consult is in place to manage his diabetes Currently holding his semaglutide but continue his glipizide (4) Urinary tract infection: Plan: Prophylactic starting Keflex therapy awaiting urine culture. Initial pinpoint growth recommend to recollect , however was on antibiotics so will just treat 3 days Admission and Anticipated Discharge Date Admission Date: August 13, 2023 Subjective pt persists with hypertension, added ARB 08/14/23, did escalate clonidine also on flomax PG Care Time/CCT Total # of Minutes Spent Total Time Spent with Patient: Total time spent is greater than 50% in coordination of care (as documented) at patient's floor/unit and/or counseling patient: Coding Level of Care Code 03009 SUB INP/OBS CARE 04/15MIN Diagnoses Depression with suicidal ideation F32.A; R45.851 Hypertension I10 Poorly controlled type 2 diabetes mellitus E11.65 Urinary tract infection N39.0 Hematuria presence: without hematuria Urinary tract infection type: site unspecified (4) Urinary tract infection Hematuria presence: without hematuria Urinary tract infection type: site unspecified Qualified Code(s): N39.0 - Urinary tract infection, site not specified
[2023-08-15] MEDS ORDERED: LOSARTAN POTASSIUM 50 MG TAB PO SCH ×2 (09:00→22:00)
--- NOTE | 2023-08-15 09:38 | Discharge Summary ---
Date of Service August 15, 2023 History of Present Illness 47 year old male with past psychiatric history of depression who presented to the hospital with suicidal ideations after his let him know that she was leaving him by sending him photos of herself and her new braydon. The patient was recently discharged from this facility after another similar episode due to marital strife. He went home believing that they were going to work on the marriage. The patient was very future oriented and hopeful, wanting to work on their marital issues and get in shape by kayaking. He states that they had spent a wonderful day together yesterday so it was a complete shock when later she let him know she was leaving him. At the time of our interview, the patient denied suicidal and homicidal ideation and showed no signs of depression, ac or psychosis. Physical Exam Vital Signs (Past 24 Hours) Last Vital Signs Temp 36.9 C 08/15/23 06:43 Pulse 89 08/15/23 06:43 Resp 16 08/15/23 06:43 BP 138/87 08/15/23 06:43 Pulse Ox 96 08/15/23 06:43 O2 Del Method Room Air 08/15/23 06:43 See admission H&P and DOD summary. Principal Diagnosis Major Depressive Disorder Psychiatric Data See daily stay summary. In short, patient was engaged with the social/therapeutic milieu of the unit, safety was maintained and the patient was cooperative with care. Medication changes included addition of losartan and increase of clonidine for HTN and Vistaril 50mg HS prn for insomnia/anxiety and they tolerated this well. A family session was held and safety plan was completed prior to discharge. He actively and insightfully participated in safety planning and in discussions about ways to seek support and recognizing warning signs and utilizing coping skills. Reviewed mobile apps that could be used for additional ways to have their safety plan and contacts easily available should thoughts of SI re-emerge in the future. Reviewed importance of seeking emergency care should SI intensify, worsen or should they feel unsafe in the future which they agree to do. On the day of discharge he stated his mood was "it's getting better and it's time to get back to reality" and remained future-oriented including seeing his family, celebrating his birthday, playing a favorite computer game, seeing his cats and engaging in aftercare appointments for psychiatry and therapy. Day of Discharge Assessment Today the patient voices readiness for discharge. They note improvement in mood and anxiety. They deny thoughts of harm to self or others. Thoughts are organized and they are clinically improved from admission. There is no evidence of psychosis. They improved in the hospital with support [and medication adjustments]. They agree to take medications as prescribed and keep follow-up appointments. At the time of the discharge they are deemed to be stable and appropriate for outpatient level of care. They are not deemed to be at imminent risk of harm to self or others. They are aware of emergency and crisis services. Knows to call 911 or go to nearest emergency care center if in a crisis which cannot be handled as an outpatient. Overall, I spent a total of 32 minutes on this case including meeting with the patient, reviewing the chart, nursing report, multidisciplinary team meeting, orders, and documentation. Transition of Care Transition Of Care Record: was reviewed with the patient Advance Directives Advance Directives Information Provided: Yes Advance Directives: No Mental Health Advance Directive: No Advance Directives on File: No Living Will: No Power of Heat Treater: No Advance Directives Reason:: Declines as Mental Health Visit. Suicide Risk Level Suicide Risk Level Comments: Acute risk is low given improvement in mood and denial of SI, lack of access to lethal means, hopefulness. Chronic risk is moderate given some non-modifiable risk factors: prior attempts, hx self-harm, emotional reactivity, prior psychiatric hospitalizations, separation from , childhood trauma, but also with protective factors including: employed, good social support, sense of resp onsibility to family and social supports, outpatient care in place, positive coping skills, positive problem solving, capacity to establish therapeutic alliance, willingness to engage with treatment and capacity for self- observation. Counseled on ways to reduce acute and chronic risk including engaging with outpatient providers, using safety plan if needed, utilizing supports, taking medication, and using coping skills. Modifiable risk factors of SI, grief and depression were addressed during hospitalization through development of new coping skills, family meeting, safety planning, and medicat ion adjustments. Risk Factors Assessment Male: Yes : Yes Do You Have Access To A Gun?: No (Parents secured guns,in safe,he does not have brantley) Health Problems: Yes Mental Health Diagnoses: Yes Substance Use Disorders: No Previous Attempt: Yes Family History of Suicide: No Previous Psychiatric Hospitalization: Yes Hopelessness: No Protective Factors Assessment : Yes (but ) Employed: Yes ([employer]) Stable Relationships: Yes Supportive Family: Yes Good Rapport with Provider: Yes Discharge Data Consultations 08/13/23 09:22 Consult Hospitalist Routine Lab Results 08/12/23 08/12/23 08/12/23 20:20 20:45 21:39 WBC 12.77 H RBC 5.89 Hgb 17.2 Hct 50.5 MCV 85.7 MCH 29.2 MCHC 34.1 RDW Std Deviation 44.5 RDW Coeff of Tien 14.3 Plt Count 296 MPV 9.6 Immature Gran % (Auto) 0.5 Neut % (Auto) 68.9 Lymph % (Auto) 23.3 Marshall % (Auto) 5.6 Eos % (Auto) 1.1 Baso % (Auto) 0.6 Neut # (Auto) 8.80 H Lymph # (Auto) 2.98 Marshall # (Auto) 0.71 H Eos # (Auto) 0.14 Baso # (Auto) 0.08 Immature Gran # (Auto) 0.06 Sodium 137 Potassium 3.5 Chloride 104 Carbon Dioxide 24 Anion Gap 9 BUN 10 Creatinine 0.84 Est Cr Clr Drug Dosing 158.7 Est GFR ( Amer) 121.7 Est GFR (Non-Af Amer) 105.0 BUN/Creatinine Ratio 11.9 Glucose 183 H POC Glucose Estimat Average Glucose Hemoglobin A1c Calcium 9.1 Total Bilirubin 0.9 AST 38 ALT 47 Alkaline Phosphatase 82 Troponin I High Sens 9.6 Total Protein 8.0 Albumin 4.3 Globulin 3.7 Albumin/Globulin Ratio 1.2 Triglycerides 160 H Cholesterol 140 LDL Cholesterol, Calc 71 VLDL Cholesterol, Calc 32 H HDL Cholesterol 37 Cholesterol/HDL Ratio 3.8 TSH 1.780 Urine Color Dark Yellow Urine Appearance Clear Urine pH 6.5 Ur Specific [place] 1.021 Urine Protein 3+ H Urine Glucose (UA) Trace H Urine Ketones Trace H Urine Blood Trace H Urine Nitrite Negative Urine Bilirubin Negative Urine Urobilinogen Negative Ur Leukocyte Esterase 1+ H Urine WBC (Auto) >50 H Urine RBC (Auto) 3-5 H U Hyaline Cast (Auto) 0-2 U Epithel Cells (Auto) 0-2 Urine Bacteria (Auto) None Seen Salicylates < 3.0 L Urine Opiates Screen Neg Ur Methadone, Qual Neg Acetaminophen < 3 L Urine Barbiturates Neg Ur Phencyclidine (PCP) Neg U Amphetamin/Meth Scrn Neg MDMA (Ecstasy) Screen Neg U Benzodiazepines Scrn Neg Ur Cocaine Metabolite Neg U Marijuana (THC) Screen Neg Ethyl Alcohol mg/dL < 10.0 SARS-CoV-2, RNA, NAAT NEGATIVE 08/13/23 08/14/23 Unknown 17:09 WBC RBC Hgb Hct MCV MCH MCHC RDW Std Deviation RDW Coeff of Tien Plt Count MPV Immature Gran % (Auto) Neut % (Auto) Lymph % (Auto) Marshall % (Auto) Eos % (Auto) Baso % (Auto) Neut # (Auto) Lymph # (Auto) Marshall # (Auto) Eos # (Auto) Baso # (Auto) Immature Gran # (Auto) Sodium Potassium Chloride Carbon Dioxide Anion Gap BUN Creatinine Est Cr Clr Drug Dosing Est GFR ( Amer) Est GFR (Non-Af Amer) BUN/Creatinine Ratio Glucose POC Glucose 123 H Estimat Average Glucose 157 Hemoglobin A1c 7.1 H Calcium Total Bilirubin AST ALT Alkaline Phosphatase Troponin I High Sens Total Protein Albumin Globulin Albumin/Globulin Ratio Triglycerides Cholesterol LDL Cholesterol, Calc VLDL Cholesterol, Calc HDL Cholesterol Cholesterol/HDL Ratio TSH Urine Color Urine Appearance Urine pH Ur Specific [place] Urine Protein Urine Glucose (UA) Urine Ketones Urine Blood Urine Nitrite Urine Bilirubin Urine Urobilinogen Ur Leukocyte Esterase Urine WBC (Auto) Urine RBC (Auto) U Hyaline Cast (Auto) U Epithel Cells (Auto) Urine Bacteria (Auto) Salicylates Urine Opiates Screen Ur Methadone, Qual Acetaminophen Urine Barbiturates Ur Phencyclidine (PCP) U Amphetamin/Meth Scrn MDMA (Ecstasy) Screen U Benzodiazepines Scrn Ur Cocaine Metabolite U Marijuana (THC) Screen Ethyl Alcohol mg/dL SARS-CoV-2, RNA, NAAT Hospital Course (1) Major depressive disorder, recurrent episode with anxious distress: Plan 08/15/2023: Desires discharge, feels safe, denying SI. BP improved. 08/14/2023: Continue current medications and tx plan. penitentiary goal of tapering abilify as mood improves. He requests losartan be switched to HS dosing due to significant fatigue today after starting higher dose. 08/12: Admit to psych inpatient unit. Continue most outpatient medications including antibiotics treating his UTI. Patient admits that this admission is not due to his medications being inappropriate but rather due to the grief from his marriage being over. Attend all milieu and therapy sessions. Mental Health & Subst Abuse Tx Psychiatrist Name of Psychiatrist: Leoncio Date Of Appointment With Psychiatric Provider: 08/08/2023 Time of Appointment with Psychiatrist: 2:30pm Therapist Name of Therapist: Ne SAVAGESandra Therapist's Time of Therapist Appointment: Call office to schedule appointment Supplier Quality Manager Name of Supplier Quality Manager: [employer] Phone Number for Supplier Quality Manager: Case Management Appointment Comment: Please call if interested in Case Management services. Post Discharge Appointments Primary Care Physician Name Of Family Doctor/PCP: Dr[facility]ي [facility] Primary Care Provider Appointment Comment: As needed Contact Information Discharge Discharge Address: [address] [place] [address] DIOGENES Luis [id number] Discharge Plan Discharge Items Patient Disposition: Home - Self-Care Reason For Visit: SUICIDAL IDEATION Discharge Diagnosis: Major Depressive Disorder Activity: Resume your previous activity Non-emergency contact: Primary Care Provider, Psychiatrist and Therapist Call non-emergency contact if: you have any medication questions and your symptoms worsen Follow-up/Referrals: Aidan العراقي PA-C [Primary Care Provider] - Diet: Regular Addtl Attending Provider Instructions: Optional mobile apps we discussed: -Suicide safety plan -Virtual Hope Box SPECIAL CARE INSTRUCTIONS: 1. Follow through with your scheduled aftercare appointments. If unable to keep an appointment, please call to reschedule. 2. Take your medication only as prescribed. Medication should not be changed or stopped without the approval of your doctor. In the event of worsening symptoms or concerns about side effects, contact your doctor immediately. 3. Utilize new healthy coping skills, anger management skills, and stress management skills learned during your hospitalization. Journal feelings and process them with a support person. Identify stressors or situations that may result in relapse, deterioration or inappropriate behaviors and develop a plan to deal with those issues. 4. If your coping skills are ineffective and you are in crisis, contact your outpatient providers for direction. If unable to reach your providers, please call the [facility] CRISIS LINE AT , go to the [facility] walk-in center at [address], [address], [place], or go to the closest Emergency Room. 5. Avoid alcohol and un-prescribed drugs. 6. You have been provided with the Mental Health Advance Directives Pamphlet for your review. 7. Your condition is stable for discharge to outpatient level of care, but recovery is an ongoing process. Ifthoughts to harm yourself or others return, follow the safety plan developed during your stay. Planning for a safe return home includes securing weapons. Our treatment team recommends weaponsbe removed from the home until your outpatient provider reassesses your progress. In rare cases where the items themselvescannot be removed, guns and ammunitionshould be secured separatelyand keys stored by a reliable personoutside of the home. If you were admitted on an involuntary commitment, the police or other legal authorities may be involved in this process. AFTERCARE APPOINTMENTS: * Please call your insurance company prior to your scheduled appointment to confirm your aftercare providers are covered. Take your insurance information to your appointments. WHO TO CALL AND WHEN: Medical Emergencies: For questions or emergencies related to your hospital stay, please contact the Inpatient Behavioral Health Unit at [phone]. A cable systems installer is on-call 12/10 for the Behavioral Health Unit for emergencies At any time you feel your situation is an emergency, you may also call 911 immediately. National Crisis Hotline: 988 Pending Studies at Discharge: No Stand-Alone Forms: [facility] Medications and DC Order Prescriptions: New cephalexin 500 mg Capsule 500 mg PO HS 1 Days Qty: 1 0RF clonidine HCl 0.2 mg tablet 0.2 mg PO DAILY 30 Days Qty: 30 0RF losartan 50 mg Tablet 50 mg PO HS 30 Days Qty: 30 0RF hydroxyzine HCl 50 mg tablet 50 mg PO HS PRN (Reason: insomnia/anxiety) 30 Days Qty: 30 0RF Continued Ozempic 0.25 mg or 0.5 mg (2 mg/3 mL) pen injector 0.25 mg subcut .COMPLEX Qty: 4.8 2RF Rx Instructions: 0.25 mg subcutaneously once weekly; TUESDAYS omeprazole 20 mg Tablet,Delayed Release (Dr/Ec) 20 mg PO QAM duloxetine 60 mg Capsule,Delayed Release(Dr/Ec) 60 mg PO HS Qty: 30 1RF duloxetine 30 mg Capsule,Delayed Release(Dr/Ec) 30 mg PO QAM Qty: 30 1RF glipizide 10 mg tablet extended release 24hr 10 mg PO QAM lorazepam 1 mg tablet 1 mg PO DAILY MDD 1 tablet PRN (Reason: Anxiety) tamsulosin [Flomax] 0.4 mg capsule 0.4 mg PO QAM aripiprazole [Abilify] 5 mg tablet 5 mg PO QAM testosterone [AndroGel] 20.25 mg/1.25 gram (1.62 %) gel in metered-dose pump 3 pump topical HS Rx Instructions: apply pump amount over max area of EACH upper arm and shoulder Discontinued clonidine HCl 0.1 mg Tablet 0.1 mg PO QAM Qty: 30 0RF Rx Instructions: Rx shows up in pharmacy records and pt claims he takes this but no bottle present nitrofurantoin monohyd/m-cryst 100 mg capsule 100 mg PO BID Rx Instructions: ordered 08/12/23 take for 7 days Discharge Orders: Discharge Order (Routine); Ordered 08/15/23 Ordered By: Valerie Chaves/Other Patient Handouts: Managing Type 2 Diabetes Admission Data Admit Date/Time: 08/13/23 00:21 Attending Provider: Valerie Pillai Admit Provider: Lara Riojas Primary Care Provider: Aidan العراقي Other Providers: Kaleb Castle Other Interventions: Discharge Summary Assessment (RN) Last Done: 08/15/23 10:18 Coding Level of Care Code 13176 D/C day mgmt > 30 min Diagnoses Major depressive disorder, recurrent episode with anxious distress F33.9
== END 2023-08-15 10:50 | disposition home or self-care (01) | DRG 885 ==
LOC: ED 20:05 → 3S 08-13 00:21 → SUATTDRO 08-13 00:21 → 3S 08-13 00:48